=== PATIENT | female | born 1980 | race Caucasian/White ===

== ENCOUNTER 2017-07-26 08:20 | Emergency (ER) | payer MEDICAID, SELFPAY ==
[2017-07-26 08:21] VITALS: BP 138/83; PULSE 86; RESP 14; TEMP 36.7; O2SAT 98; BMI 22.9
--- NOTE | 2017-07-26 08:35 | EKG12_ITS ---
Test Reason : CHEST PAIN Blood Pressure : / mmHG Vent. Rate : 087 BPM Atrial Rate : 087 BPM P-R Int : 130 ms QRS Dur : 076 ms QT Int : 342 ms P-R-T Axes : 062 066 050 degrees QTc Int : 411 ms Normal sinus rhythm Normal ECG Confirmed by ROLANDO PELLETIER, SHAAN ([id number]), editorial specialist GUIDO KAN ([id number]) on 07/28/2017 12:55:05 PM Referred By: Confirmed By:SHAAN MARSHALL MD
--- NOTE | 2017-07-26 08:35 | RAD_ITS ---
STUDY: X-RAY CHEST REASON FOR EXAM: Female, 37 years old. Chest pain since last evening. Patient has headache today. TECHNIQUE: PA and lateral views of the chest. COMPARISON: None. FINDINGS: The lungs are clear and expanded. There is no demonstrated pleural abnormality. Normal size heart. Normal mediastinum and issa. There is prominence of the pulmonary hilar arteries without peripheral pulmonary vascular congestion. There is atherosclerotic tortuosity of the aortic arch and descending thoracic aorta. Normal visualized thoracic spine. Normal visualized ribs, clavicles, and shoulders. There is no demonstrated abnormality of the visualized soft tissue structures of the upper abdomen. RAD/Chest PA and Lateral IMPRESSION: No radiographic evidence of acute cardiopulmonary disease. Electronically Signed: Lisa Oh MD at 9:12 EST , Service support ,
[2017-07-26 08:56] LABS: Basophil# 0.05 X10^3/uL; Basophil% 0.8 % (0-1); Eosinophil# 0.08 X10^3/uL; Eosinophils% 1.3 % (0-5); Hematocrit 39.5 % (37-47); Mean Corp Hgb Conc 35.4 g/gl (32-36); Mean Corpuscular Hgb 34.5 pg (27.0-32.0); Mean Corpuscular Volume 97.3 fL (81-99); Monocyte# 0.47 X10^3/uL; Monocyte% 7.5 % (0-10); Neutrophil # 3.98 X10^3/uL (2.7-7.7); Neutrophil % 63.2 % (47-70); Platelet Count 263 K/mm3 (150-450); RBC Distribution Width CV 11.7 % (11.6-14.6); RBC Distribution Width SD 40.5 fl (35.1-43.9); Red Blood Count 4.06 M/mm3 (4.2-5.4); White Blood Count 6.3 K/mm3 (4.4-11.0)
[2017-07-26 08:57] LABS: POSITIVE COUNT NO; POSITIVE DIFFERENTIAL NO; POSITIVE MORPHOLOGY NO
[2017-07-26 09:08] LABS: D-Dimer Quantitative (DVT/PE) 0.27 FEU/ug/m (0.27-0.49)
[2017-07-26 09:11] LABS: Anion Gap 8 (5-15); BUN 12 mg/dL (7-18); BUN/Creat Ratio 15.4 RATIO (10-20); Chloride 108 mmol/L (98-107); Creatinine, Serum 0.78 mg/dL (0.55-1.02); EST Glomerular Filtration Rate 87 mL/min (>60); Est Glom Filt Rate - Afr Amer 106 mL/min (>60); Estimated Creatinine Clearance 104.71 ml/min; Glucose 97 mg/dL (74-106); Potassium 4.3 mmol/L (3.5-5.1); Sodium Level 140 mmol/L (136-145)
--- NOTE | 2017-07-26 09:17 | ED.VISSUMM ---
- ER Visit Summary Date of Service: 07/26/17 Chief Complaint: Chest pain History of Present Illness: The patient is a 37 F who presents with chest pain. Initially began about 4 days ago but has been constant since last night. She describes it as a sharp pain. It is worse with palpation coughing or deep breathing. She states she felt lightheaded and short of breath. She has had some recent congestion but denies fevers nausea vomiting diarrhea. She states that she only has a mild occasional nonproductive cough. No recent travel surgery mobilization history of DVT or pulmonary embolism or history of cancer. No history of diabetes hypertension or hyperlipidemia. He cannot think of anything where she may have injured or strained her chest wall. Physical Examination: Afebrile vitals are unremarkable Moist mucous membranes Heart regular rate and rhythm Lungs are clear Patient does have reproducible right anterior upper chest wall tenderness no rash no crepitus Equal breath sounds bilaterally Extremities nontender without edema Alert Test Results: EKG shows sinus rhythm at a rate of 87 with no acute ischemic changes. Two-view chest x-ray shows no acute process. CBC BMP troponin and d-dimer all normal. Emergency Department Course and Treatment: Since workup is unremarkable. Her pain is sharp and reproducible. I do believe this is most likely musculoskeletal in nature. She was advised on supportive care. She understands to return for new or worsening symptoms and was instructed on specific signs and symptoms to monitor for. She was discharged home. Treatment Plan: [] Disposition: Discharge Impression: Chest wall pain This note was generated with [employer] dictation software. It may contain incorrect words, spelling, and punctuation that were not noted in review of the chart prior to signing ED Disposition - Plan for ED Patient: Chief Complaint: Chest Pain Referrals: Eugenio Urban DO [Primary Care Provider] -
--- NOTE | 2017-07-26 09:19 | ED.DEP ---
ED Disposition - Plan for ED Patient: Chief Complaint: Chest Pain Instructions: ED Strain Chest Wall, ED Chest Pain NonCardiac Referrals: Eugenio Urban DO [Primary Care Provider] -
[2017-07-26 10:02] VITALS: BP 113/98; PULSE 89; RESP 18
== END 2017-07-26 10:03 | disposition home or self-care (01) ==
PROVIDERS: Emergency Provider Emergency Medicine; Family Provider Student in an Organized Health Care Education/Training Program; PCP Student in an Organized Health Care Education/Training Program
DX: R07.89 Other chest pain (principal); Z72.0 Tobacco use
CPT/HCPCS: 71046; 80048; 84484; 85025; 85379; 93005; 99284

== ENCOUNTER 2019-01-17 08:42 | Emergency (ER) | payer MEDICAID, SELFPAY ==
[2019-01-17 08:44] VITALS: BP 132/99; PULSE 102; RESP 17; TEMP 36.6; O2SAT 100; BMI 28.7
--- NOTE | 2019-01-17 08:59 | VDLE_ITS ---
Reason For Study: Swelling Procedure LEFT Exam performed portable in ED. GSV is normal. A preliminary report was called and/or faxed CFV is compressible, spontaneous, phasic, to Alessandro. competent, and demonstrates normal augmentation. FV is compressible, spontaneous, phasic, competent and demonstrates normal augmentation. POP V is compressible, spontaneous, phasic, competent and demonstrates normal augmentation. T/P Trunk is compressible. PTV is compressible. LT PerV is compressible. Nonvascularized structure noted in the proximal popliteal fossa muscle measuring 4.17 x 1.85 x 2.16 cm. Interpretation Summary There is no evidence of left lower extremity deep vein thrombosis. Left great saphenous vein appears patent and compressible segmentally. Left popliteal space 4.17 x 1.85 x 2.16 Perdomo's cyst Ordering Physician: Tyree Francois Referring Physician: Eugenio Braxton Performed By: Theresa Walters RVT
--- NOTE | 2019-01-17 10:10 | ED.VISSUMM ---
- ER Visit Summary Date of Service: 01/17/19 Chief Complaint: Left leg pain and swelling History of Present Illness: The patient is a 38 F who presents emergency department with left leg pain and swelling. She states that over the weekend she went camping/fishing in [place]. [place] than [place] drive from here. She states that while there she took a fishhook to the right arm removed without incident. She returned home yesterday and woke this morning with pain in the left leg. She describes it is mostly medial distal thigh extending posteriorly down into the left leg. She notes some mild swelling. Her is concerned he may be a tick on the calf. There is no erythema in the area. No history of DVT PE. She had a full hysterectomy in September 29, 2018. Notes painful ambulation today. Physical Examination: Afebrile vital signs stable Gen: Well-nourished well-developed Head: Normocephalic atraumatic Eyes: Perrl EOMI ENT: TMs clear no rhinorrhea moist mucous membranes Neck: Supple no lymphadenopathy no JVD nontender CVS: Regular rate rhythm no murmurs normal S1-S2 Respiratory: No distress clear to auscultation bilaterally chest nontender Abdomen: Soft nontender nondistended normal bowel sounds no masses Back: Nontender Extremity: There is some mild swelling of the left leg. On the medial left calf there is a dark black spot that could be A. tach. There is no surrounding erythema or rash. There is a fullness in the posterior popliteal fossa. Mostly felt on the medial aspect. There are no cords. Neurovascular intact distal Skin: Normal color no rash Neuro: alert orientated ?3 CN II-XII intact normal strength sensation reflexes gait cerebellar Psych: Normal affect normal mood Test Results: Venous Doppler demonstrated no DVT. There is a 4 x 2 cm nonvascularized structure in the proximal popliteal fossa/musculature. Emergency Department Course and Treatment: 1% lidocaine was instilled underneath the area that was concern for a tick. 22-gauge needle was used to lift the area off. It does appear that this was a tick. Patient was advised to monitor for rash. Advised to monitor for signs and symptoms of tickborne illnesses. Follow-up will be with orthopedics if not improving Impression: 1. Left leg pain 2. Perdomo's cyst left 3. Tick removal by physician This note was generated with Dragon dictation software. It may contain incorrect words, spelling, and punctuation that were not noted in review of the chart prior to signing ED Disposition - Plan for ED Patient: Disposition: Home or Assisted Living Instructions: Perdomo's Cyst, TICK BITE, No Abx Tx Prescriptions: Oxycodone HCl/Acetaminophen [Percocet 5/325] 1 tab PO Q6H PRN PRN 3 Days #12 tab PRN Reason: Pain Prescription Printed Referrals: Julius Oh MD [STAFF PHYSICIAN] - 1 Week if not improving
== END 2019-01-17 10:43 | disposition home or self-care (01) ==
PROVIDERS: Emergency Provider Emergency Medicine; Family Provider Student in an Organized Health Care Education/Training Program; PCP Student in an Organized Health Care Education/Training Program
DX: M71.22 Synovial cyst of popliteal space [Baker], left knee (principal); S80.862A Insect bite (nonvenomous), left lower leg, initial encounter; W57.XXXA Bitten or stung by nonvenomous insect and other nonvenomous arthropods, initial encounter; Y93.89 Activity, other specified; Y99.8 Other external cause status; M79.605 Pain in left leg; F98.8 Other specified behavioral and emotional disorders with onset usually occurring in childhood and adolescence
CPT/HCPCS: 93971; 99282

== ENCOUNTER → 2020-03-01 | Outpatient (CLI) | payer MEDICAID, SELFPAY | END | disposition home or self-care (01) | LOC: LABSPEC 13:40 | PROVIDERS: Referring Provider Family Medicine; Visit Provider Family Medicine | DX: Z03.818 Encounter for observation for suspected exposure to other biological agents ruled out (principal) | CPT/HCPCS: 87635; U0003 ==

== ENCOUNTER → 2020-03-15 | Outpatient (CLI) | payer MEDICAID, SELFPAY | END | disposition home or self-care (01) | LOC: LABSPEC 11:01 | PROVIDERS: Referring Provider Family Medicine; Visit Provider Family Medicine | DX: Z11.59 Encounter for screening for other viral diseases (principal) | CPT/HCPCS: 87635; U0003 ==

== ENCOUNTER → 2020-03-29 | Outpatient (CLI) | payer MEDICAID, SELFPAY | END | disposition home or self-care (01) | LOC: LABSPEC 12:24 | PROVIDERS: Referring Provider Family Medicine; Visit Provider Family Medicine | DX: Z03.818 Encounter for observation for suspected exposure to other biological agents ruled out (principal) | CPT/HCPCS: 87635; U0003 ==

== ENCOUNTER → 2020-04-12 | Outpatient (CLI) | payer MEDICAID, SELFPAY | END | disposition home or self-care (01) | LOC: LABSPEC 10:55 | PROVIDERS: Referring Provider Family Medicine; Visit Provider Family Medicine | DX: Z03.818 Encounter for observation for suspected exposure to other biological agents ruled out (principal) | CPT/HCPCS: 87635; U0003 ==

== ENCOUNTER → 2020-04-26 | Outpatient (CLI) | payer MEDICAID, SELFPAY | END | disposition home or self-care (01) | LOC: LABSPEC 13:23 | PROVIDERS: Referring Provider Family Medicine; Visit Provider Family Medicine | DX: Z03.818 Encounter for observation for suspected exposure to other biological agents ruled out (principal) | CPT/HCPCS: 87635; U0003 ==

== ENCOUNTER → 2022-12-17 | Outpatient (CLI) | payer MEDICAID, SELFPAY ==
[2022-12-17 15:38] LABS: Absolute Lymphocyte Count 1.86 X10^3/uL (0.83-4.51); Absolute Neutrophil Count 3.7 X10^3/uL (2.0-7.7); Basophil# 0.05 X10^3/uL; Basophil% 0.8 % (0-1); Eosinophil# 0.13 X10^3/uL; Eosinophils% 2.1 % (0-5); Hematocrit 39.6 % (37-47); Hemoglobin 13.7 g/dL (12.0-15.0); Lymphocyte # 1.86 X10^3/ul (0.83-4.51); Lymphocyte % 29.6 % (19-41); Mean Corp Hgb Conc 34.6 g/dL (32-36); Mean Corpuscular Hgb 33.7 pg (27.0-32.0); Mean Corpuscular Volume 97.3 fL (81-99); Monocyte# 0.49 X10^3/uL; Monocyte% 7.8 % (0-10); NRBC Flagged by Analyzer 0 % (0-5); Neutrophil # 3.73 X10^3/uL (2.7-7.7); Neutrophil % 59.4 % (47-70); Platelet Count 299 K/mm3 (150-450); RBC Distribution Width CV 11.9 % (11.6-14.6); RBC Distribution Width SD 42.6 fl (35.1-43.9); Red Blood Count 4.07 M/mm3 (4.2-5.4); White Blood Count 6.3 K/mm3 (4.4-11.0)
[2022-12-17 15:48] LABS: Erythrocyte Sedimentation Rate 8 mm/hr (0-30)
[2022-12-17 16:20] LABS: Vitamin B12 950 pg/mL (211-911)
[2022-12-17 16:50] LABS: AST(SGOT) 22 U/L (15-37); Alanine Aminotransfer ALT/SGPT 41 U/L (13-56); Albumin, Serum 3.7 g/dL (3.2-5.0); Alkaline Phosphatase 99 U/L (45-117); Amylase 57 U/L (25-115); Anion Gap 3 (5-15); BUN 16 mg/dL (7-18); BUN/Creat Ratio 16.3 RATIO (10-20); CRP < 2.90 mg/L (0.0-3.0); Calcium,Total 8.9 mg/dL (8.5-10.1); Chloride 109 mmol/L (98-107); Creatinine, Serum 0.98 mg/dL (0.55-1.02); EST Glomerular Filtration Rate 65 mL/min (>60); Est Glom Filt Rate - Afr Amer 79 mL/min (>60); Globulin 3.8 g/dL (2.2-4.2); Glucose 97 mg/dL (74-106); LDH 177 U/L (84-246); Lipase 54 U/L (13-75); Potassium 3.9 mmol/L (3.5-5.1); Protein, Total 7.5 g/dL (6.4-8.2); Sodium Level 137 mmol/L (136-145)
[2022-12-21 00:06] LABS: Anti-Centromere B Ab <0.2 AI (0.0-0.9); Anti-Chromatin <0.2 AI (0.0-0.9); Anti-Jo <0.2 AI (0.0-0.9); Anti-Scleroderma-70 AB <0.2 AI (0.0-0.9); Anti-dsDNA Ab 1 IU/mL (0-9); Beef <0.10 kU/L (Class 0); Chocolate <0.10 kU/L (Class 0); Clam <0.10 kU/L (Class 0); Codfish <0.10 kU/L (Class 0); Corn <0.10 kU/L (Class 0); Egg, White 0.14 kU/L (Class 0/I); Egg, Whole 0.15 kU/L (Class 0/I); Milk (Cow) <0.10 kU/L (Class 0); Peanut <0.10 kU/L (Class 0); Pork <0.10 kU/L (Class 0); RNP Ab <0.2 AI (0.0-0.9); SCALLOP <0.10 kU/L (Class 0); SESAME SEED <0.10 kU/L (Class 0); SJOGREN'S Anti-SS-A test < 0.2 AI (0.0-0.9); SJOGREN'S Anti-SS-B test < 0.2 AI (0.0-0.9); Shrimp <0.10 kU/L (Class 0); Smith Ab <0.2 AI (0.0-0.9); Soybean <0.10 kU/L (Class 0); Walnut, (Food) <0.10 kU/L (Class 0); Wheat 0.11 kU/L (Class 0/I)
[2022-12-21 01:06] LABS: Albumin 3.9 g/dL (2.9-4.4); Alpha-1-Globulins 0.2 g/dL (0.0-0.4); Alpha-2-Globulins 0.8 g/dL (0.4-1.0); Cytoplasmic Ab (C-ANCA) 1:20 titer (Neg:<1:20); Endomysial Antibody IgA Negative (Negative); Gamma Globulin 1.1 g/dL (0.4-1.8); Immunoglobulin A 222 mg/dL (87-352); Immunoglobulin E 101 IU/mL (6-495); Immunoglobulin G 965 mg/dL (586-1602); Immunoglobulin M 108 mg/dL (26-217); PROEL- TOTAL PROTEIN 7.1 g/dL (6.0-8.5); Perinuclear Ab (P-ANCA) <1:20 titer (Neg:<1:20); t-Transglutaminase IgA <2 U/mL (0-3)
== END | disposition home or self-care (01) ==
PROVIDERS: PCP Student in an Organized Health Care Education/Training Program; Referring Provider Internal Medicine Gastroenterology; Visit Provider Internal Medicine Gastroenterology
DX: R19.5 Other fecal abnormalities (principal)
CPT/HCPCS: 36415; 80053; 82150; 82533; 82607; 82746; 82784; 82785; 83516; 83615; 83690; 84165; 85025; 85652; 86003; 86005; 86140; 86225; 86235; 86255; 86256; 86334

== ENCOUNTER → 2022-12-18 | Outpatient (CLI) | payer MEDICAID, SELFPAY ==
[2022-12-21 01:06] LABS: Calprotectin, Stool 8 ug/g (0-120)
[2022-12-23 14:09] LABS: Pancreatic Elastase, Fecal 270 (>200)
== END | disposition home or self-care (01) ==
LOC: LABSPEC 09:40
PROVIDERS: PCP Student in an Organized Health Care Education/Training Program; Referring Provider Internal Medicine Gastroenterology; Visit Provider Internal Medicine Gastroenterology
DX: R19.5 Other fecal abnormalities (principal); K58.9 Irritable bowel syndrome, unspecified
CPT/HCPCS: 82653; 83630; 83993; 87177; 87209; 87329; 87493; 87506

== ENCOUNTER → 2023-01-05 | Outpatient (CLI) | payer MEDICAID, SELFPAY | END | disposition home or self-care (01) | PROVIDERS: PCP Student in an Organized Health Care Education/Training Program; Referring Provider Internal Medicine Gastroenterology; Visit Provider Internal Medicine Gastroenterology | DX: R19.5 Other fecal abnormalities (principal) ==

== ENCOUNTER 2023-07-27 11:00 | Day surgery (SDC) | payer OTHER, SELFPAY ==
[2023-07-27] VITALS (7 sets, daily range): BP systolic 115–128; BP diastolic 79–95; PULSE 47–70; RESP 16–18; TEMP 35.6–36.4; O2SAT 100; BMI 29.7
[2023-07-27] MEDS: Lactated Ringers 1,000 ML 15 ML IV (11:17)
--- NOTE | 2023-07-27 11:34 | PCM.HP.BLA ---
History and Physical Date of Admission: 07/27/23 42 F who presents to the office today for PCP OV 3.15.23 with loose/black stools and mild dysphagia. PPI, cholestyramine started. ? Biochemical 05.03.22 CBC, CMP, LFT, Lipids without pertinent abnormality. ? Fecal Occult WNL *BGI established 12.17.22 gluten free diet recommended by PCP has been helpful. She has been having postprandial loose stools, bloating and burning starting in the morning; will have abdominal pain if she pushes the amount of food intake. Onset approximately a year prior. Diet consists of yogurt, salads, fruits and vegetables which she eats every 12 hours. ? Biochemical CBC, ESR, CMP, CRP, LDH, amylase, lipase, folate, cortisol, GAME, JOSE, celiac without pertinent abnormality ? B12 H950, cANCA H1:20??? RAST Class 1: wheat, egg white, egg whole ? Stool calprotectin, elastase, C.difficile, EP, lactoferrin WNL Contact 12.29.22 with biochemical results, can start Xifaxan to address possible SIBO and avoidance of food sensitivities. OV 12..23 continues to have urgent loose stools with urgency incontinence with mucous and bloating occurring several times a week and last the entire day; since cessation of food sensitivities symptoms are no longer postprandial, has also gone milk/sour cream/ice cream and this avoidance has improved the food trigger. Currently taking Prozac; but feels she is easily stressed and anxious. ROS Const Constitutional: No anorexia, fatigue, fever(s), weight change or sleep problems Eyes Eyes: No change in vision ENT ENT: No abnormal hearing, difficulty swallowing, mouth lesions, tongue swelling or throat swelling Resp Respiratory: No cough or shortness of breath Cardio Cardiology: No chest pain at rest, chest pain with exertion, shortness of breath or dyspnea on exertion Gastro GI: No difficulty swallowing Genitourinary-Female: No difficulty urinating or burning urination Musc Musculoskeletal: No joint pain, joint swelling, muscle weakness or decreased muscle mass Skin Skin: No hair loss in leg, yellowing of the eye, itchy eyes, rash, skin ulcer or skin swelling Neuro Neurology: No abnormal hearing, abnormal movements, confusion, unsteady gait/balance or memory loss Psych Psychiatric: No anxiety, No confusion and No memory loss Endo Endocrine: No fatigue or weight change Aller/Imm Allergy/Immunologic: No itchy eyes, throat swelling or tongue swelling Doe/Lymp Hematologic/Lymphatic: No easy bleeding, easy bruising or enlarged lymph nodes Exam Const General: cooperative and comfortable Nutritional Appearance: average body habitus and well nourished [facility] Head: normal to inspection Ears: hearing grossly normal bilaterally Nose: external nose normal Face and sinus: normal facial exam Mouth: oral mucosae normal Throat: posterior oropharynx normal Eyes General: appearance normal, both eyes and all related structures Neck Neck: normal visual inspection Chest Chest palpation & inspection: normal inspection of the chest and normal palpation of entire chest wall Resp Effort & Inspection: normal respiratory effort Auscultation: Bilateral: Clear to Auscultation Cardio Palpation: normal PMI Rate: regular rate Rhythm: regular rhythm GI Inspection: normal to inspection Auscultation: normal bowel sounds Percussion: normal to percussion Palpation: no hepatosplenomegaly Skin General: no rashes or lesions noted Neuro General: patient alert Extrem General: normal to inspection Psych Affect: normal affect Quality Reporting Tobacco Screening ([facility]) Smoking Status: Current every day smoker Assessment and Plan Assessment and Plan (1) Loose stools: Status: Chronic Plan: The differential diagnosis for her diarrhea is a an accelerated gastrocolic reflex, bile acid diarrhea, exocrine pancreatic insufficiency, Endocrinopathy, infectious enterocolitis, inflammatory bowel disease, infectious colitis. She will undergo biochemical testing in a gastric emptying study to see if she truly has accelerated gastrocolic reflex. Once her stools are back we will discuss recommendations for her. We will start her on colestipol and dicyclomine. I suspect that she has bile acid diarrhea. I suspect that she also has elements of IBS with diarrhea. After she undergoes colonoscopy we will have a better understanding regarding her anatomy. (2) Encounter for screening for malignant neoplasm of colon: Status: Chronic Plan: Starting she will undergo colonoscopy as a screening. She was explained alternatives, risk, benefits including not withstanding bleeding, infection, sepsis, perforation, need for emergent surgery . She will be an ASA 2. Orders: Orders Colonoscopy Today Z12.11 - Encounter for screening for malignant neoplasm of colon Medications: New colestipol 1 g PO BID 60 tabs 0RF dicyclomine 10 mg PO BID 60 caps 0RF I have examined the patient and the H&P has been reviewed. There are no clinical changes since date of exam.
--- OUTSIDE RECORDS SUMMARY | 2023-07-27 11:53 | XMS RPT_ITS | CCD ---
Author Name Unknown Address [address] [place] [address] Organization [facility] Care Team Providers Care Photogrammetric Surveyor Name Role Phone EUGENIO BAR Primary Care Unavailable CRISTAL PASTRANA Attending Unavailable Eugenio Bar Primary Care Provider RM GARCIA DO Primary Care Physician [phone] Eugenio Bar DO Primary Care Provider [phone] Eugenio Bar DO Primary Care Provider HALKO DO, RM Primary Care Unavailable HALKO DO, RM Attending Unavailable HALKO DO, RM Primary Care Unavailable MAST SAKSHI BARBER Attending Unavailabl e HALKO DO, RM Attending Unavailable HALKO DO, RM Primary Care Unavailable HALKO DO, RM Attending Unavailable HALKO DO, RM Primary Care Unavailable HALKO DO, RM Attending Unavailable HALKO DO, RM Primary Care Unavailable HALKO DO, RM Attending Unavailable HALKO DO, RM Primary Care Unavailable HALKO DO, RM Attending Unavailable HALKO DO, RM Primary Care Unavailable HALKO DO, RM Primary Care Unavailable HALKO DO, RM Attending Unavailable HALKO DO, RM Primary Care Unavailable HALKO DO, RM Attending Unavailable HALKO DO, RM Primary Care Unavailable BYRON CISNEROS DO Attending Unavailable HALKO DO, RM Primary Care Unavailable BYRON CISNEROS DO Attending Unavailable DR RAJANI HERNANDEZ MD Attending Unavailabl e HALKO DO, RM Primary Care Unavailable Allergies Allergy Classification Reported Allergen(s) Allergy Type Date of Onset Reaction(s) Facility (2 sources) Contrast media; Translations: [RED DYE] Propensity to adverse reactions to drug (disorder) 9 [facility] Repository (12 sources) predniSONE; Translations: [Unknown] Drug Allergy 6 Hives, Shortness Of Breath, Mental Status Change [facility] Repository Medications Current Medications Medication Drug Class(es) Dates Sig (Normalized) Sig (Original) amoxicillin 875 mg / clavulanate 125 mg oral tablet (1 source) Penicillin-class Antibacterial Start: 01-15-2019 End: 01-20-2019 take 1 tablet by mouth twice daily amoxicillin-clav ulanate (AUGMENTIN) 875-125 mg per tablet Take 1 (one) tablet by mouth 2 (two) times a day for 5 days . 10 tablet 0 01/15/2019 01/20/2019 Active busPIRone hydrochloride 5 mg oral tablet (8 sources) Start: 08-02-2021 End: 11-24-2022 busPIRone 5 mg oral tablet Dose : 5 mg = 1 tab(s), Oral, BID, # 180 tab(s), 1 Refill(s), Pharmacy: [facility] #[id number], 177.8, cm, 05/28/22 14:52:00 EST, Height, kg, 05/28/22 14:52:00 EST, Dosing Weight Start Date: 05/28/22 Stop Date: 11/24/22 Status: Ordered Completed/Discontinued Medications Medication Drug Class(es) Dates Sig (Normalized) Sig (Original) Acetaminophen (2 sources) acetaminophen (T YLENOL ORAL) Take 1 tablet by mouth as needed (takes due to allergy). 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 Allergic reactions (1 source) Gluten sensitivity 12-31-2022 Chronic Allergic reactions (1 source) Allergy to egg protein 12-31-2022 Episodic Anxiety disorders (16 sources) Mixed anxiety and depressive disorder; Translations: [Panic attack] 04-12-2021 Chronic Attention-deficit, conduct, and disruptive behavior disorders (10 sources) Attention deficit hyperactivity disorder; Translations: [Attention-deficit hyperactivity disorder, unspecified type] Onset: 05-16-2016 08-01-2016 Chronic Deficiency and other anemia (8 sources) Anemia 04-12-2021 Episodic Disorders of lipid metabolism (8 sources) Hyperlipidemia 04-29-2021 Chronic Headache; including migraine (2 sources) Migraine; Translations: [Migraine, unspecified, not intractable, without status migrainosus] Onset: 05-16-2016 05-16-2016 Chronic Headache; including migraine (8 sources) Headache 04-12-2021 Episodic Inflammation; infection of eye (except that caused by tuberculosis or sexually transmitteddisease) (3 sources) Blepharitis of right eyelid 06-09-2022 Episodic Malaise and fatigue (10 sources) Fatigue; Translations: [Other fatigue] Onset: 04-29-2023 04-12-2021 Episodic Mood disorders (5 sources) Severe major depression; Translations: [Major depression in remission] 04-30-2022 Chronic Other bone disease and musculoskeletal deformities (7 sources) Somatic dysfunction of lumbar region 08-02-2021 Episodic Other bone disease and musculoskeletal deformities (7 sources) Somatic dysfunction of sacral region 08-02-2021 Episodic Other bone disease and musculoskeletal deformities (6 sources) Somatic dysfunction of pelvic region 02-26-2022 Episodic Other circulatory disease (5 sources) Easy bruising 04-30-2022 Episodic Other connective tissue disease (7 sources) Iliotibial band friction syndrome 08-02-2021 Episodic Other connective tissue disease (7 sources) Triggering of digit 12-11-2021 Episodic Other connective tissue disease (6 sources) Trochanteric bursitis 02-26-2022 Episodic Other gastrointestinal disorders (3 sources) Abdominal bloating 09-30-2022 Episodic Other gastrointestinal disorders (3 sources) Black feces 08-27-2022 Episodic Other gastrointestinal disorders (3 sources) Diarrhea 09-30-2022 Episodic Other gastrointestinal disorders (3 sources) Esophageal dysphagia 08-27-2022 Episodic Other injuries and conditions due to external causes (8 sources) Nerve injury 09-20-2015 Episodic Other injuries and conditions due to external causes (4 sources) At low risk for fall 01-29-2022 Episodic Other nervous system disorders (2 sources) Bilateral carpal tunnel syndrome; Translations: [Carpal tunnel syndrome, bilateral upper limbs] Onset: 07-06-2013 07-06-2013 Chronic Other nervous system disorders (2 sources) Ulnar neuropathy of left arm; Translations: [Lesion of ulnar nerve, left upper limb] Onset: 06-19-2016 06-19-2016 Chronic Other nervous system disorders (2 sources) Carpal tunnel syndrome of left wrist; Translations: [Carpal tunnel syndrome, left upper limb] Onset: 06-19-2016 06-19-2016 Chronic Other nervous system disorders (7 sources) Carpal tunnel syndrome 10-30-2021 Chronic Other non-traumatic joint disorders (7 sources) Hip pain 08-02-2021 Episodic Other nutritional; endocrine; and metabolic disorders (2 sources) Obese class I; Translations: [Obesity, unspecified] Onset: 09-29-2018 09-29-2018 Chronic Other nutritional; endocrine; and metabolic disorders (7 sources) Body mass index 30+ - obesity 01-29-2022 Chronic Other nutritional; endocrine; and metabolic disorders (7 sources) Obesity 01-29-2022 Chronic Other screening for suspected conditions (not mental disorders or infectious disease) (17 sources) Measurement finding above reference range; Translations: [Patient encounter status] 04-29-2021 Episodic Residual codes; unclassified (8 sources) Tobacco user 04-12-2021 Episodic Residual codes; unclassified (7 sources) History of total hysterectomy with bilateral salpingo-oophorectom y 10-30-2021 Episodic Residual codes; unclassified (9 sources) Insomnia 05-24-2021 Episodic Residual codes; unclassified (3 sources) FH: Crohn's disease 09-30-2022 Episodic Residual codes; unclassified (3 sources) Screening due 09-10-2022 Episodic Residual codes; unclassified (1 source) Immunization due 12-31-2022 Episodic Spondylosis; intervertebral disc disorders; other back problems (4 sources) Degeneration of cervical intervertebral disc; Translations: [Other cervical disc degeneration, unspecified cervical region] Onset: 07-06-2013 07-06-2013 Chronic Thyroid disorders (17 sources) Goiter; Translations: [Thyroid nodule] Onset: 04-29-2023 04-12-2021 Chronic Unclassified (20 sources) Patient encounter status 04-12-2021 Past or Other Problems Problem Classification Problem Date Documented Da te Episodic/Chronic Gastrointestinal hemorrhage (2 sources) Melena; Translations: [Melena] Onset: 08-28-2022 Episodic Open wounds of extremities (1 source) Fishing hook in forearm; Translations: [Fish hook in forearm] Episodic Other connective tissue disease (2 sources) Pain in limb; Translations: [Pain in unspecified limb] Onset: 05-19-2013 05-19-2013 Episodic Other connective tissue disease (2 sources) Impingement syndrome of right shoulder region; Translations: [Impingement syndrome of right shoulder] Onset: 08-01-2013 08-01-2013 Episodic Residual codes; unclassified (2 sources) Tobacco use and exposure - finding; Translations: [Tobacco use] Onset: 05-16-2016 05-16-2016 Episodic Spondylosis; intervertebral disc disorders; other back problems (4 sources) Neck pain; Translations: [Cervicalgia] Onset: 07-06-2013 07-06-2013 Episodic Results Test Name Value Interpretation Reference Range Facil ity Vital Signs Date Time Vital Sign Value Performing Clinician Facility 10-05-2022 04:38-0400 Body temperature 98.24 [degF] DR RAJANI HERNANDEZ MD [facility] 10-05-2022 04:38-0400 Diastolic Blood Pressure Non-Invasive [address] RAJANI HERNANDEZ MD [facility] 10-05-2022 04:38-0400 Heart rate 91 /min DR RAJANI HERNANDEZ MD [facility] 10-05-2022 04:38-0400 Respiratory rate 16 /min DR RAJANI HERNANDEZ MD [facility] 10-05-2022 04:38-0400 Systolic Blood Pressure Non-Invasive [address] RAJANI HERNANDEZ MD [facility] 01-15-2019 20:34-0400 BMI (Body Mass Index) 25.54 kg/m2 [facility] 01-15-2019 20:34-0400 Body Temperature 97.81 [degF] [facility] 01-15-2019 20:34-0400 Body weight 80.74 kg [facility] 01-15-2019 20:34-0400 BP Diastolic 108 mm[Hg] [facility] 01-15-2019 20:34-0400 BP Systolic 150 mm[Hg] [facility] 01-15-2019 20:34-0400 Height 177.8 cm [facility] 01-15-2019 20:34-0400 Pulse (Heart Rate) 112 /min [facility] 01-15-2019 20:34-0400 Pulse Oximetry 100 % [facility] 01-15-2019 20:34-0400 Respiratory Rate 18 /min [facility] Encounters Encounter Date Encounter Type Care Provider Facility Start: 06-10-2023 ambulatory RM HALKO DO Facili ty:B Start: 06-04-2023 ambulatory RM HALKO DO Facili ty:B Start: 05-12-2023 End: 05-13-2023 ambulatory RM HALKO DO Facility:A Start: 04-30-2023 End: 05-01-2023 ambulatory RM HALKO DO Facility:B Start: 04-30-2023 ambulatory RM HALKO DO Facili ty:B Start: 04-29-2023 End: 05-04-2023 ambulatory RM HALKO DO Facility:B Start: 02-18-2023 End: 02-19-2023 ambulatory RM HALKO DO Facility:B Start: 02-18-2023 End: 02-18-2023 Patient encounter procedure RM HALKO DO [facility] Start: 10-08-2022 End: 10-09-2022 ambulatory RM HALKO DO Facility:B Start: 10-08-2022 End: 10-08-2022 Patient encounter procedure 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 [facility] Start: 10-05-2022 End: 10-05-2022 Emergency department patient visit DR RAJANI HERNANDEZ MD Facility:B Start: 10-05-2022 End: 10-05-2022 Emergency department patient visit DR RAJANI HERNANDEZ MD [facility] Start: 09-11-2022 ambulatory RM HALKO DO Facili ty:B Start: 09-10-2022 ambulatory Eugenio Monreal lashonda DO Work Phone: Internal Medicine [facility] Start: 08-28-2022 End: 09-02-2022 ambulatory RM HALKO DO Facility:B Start: 06-15-2022 End: 06-20-2022 ambulatory RM GARCIA DO Facility:B Start: 06-04-2022 End: 06-04-2022 Patient encounter procedure RM GARCIA DO [facility] Start: 05-03-2022 End: 05-03-2022 Patient encounter procedure RM GARCIA DO [facility] Start: 03-12-2022 End: 03-12-2022 Patient encounter procedure RM GARCIA DO [facility] Start: 02-12-2022 End: 02-12-2022 Patient encounter procedure RM GARCIA DO [facility] Start: 09-25-2021 ambulatory Eugenio gallego DO Work Phone: Internal Medicine [facility] Start: 05-08-2021 End: 05-08-2021 Patient encounter procedure RM GARCIA DO [facility] Start: 01-15-2019 End: 01-16-2019 Emergency department patient visit EUGENIO Therese CAMPABAR [facility] Start: 01-15-2019 End: 01-15-2019 Emergency department patient visit Cristal Hope Victoriano Work Phone: [facility] Emergency Department Procedures Date Procedure Procedure Detail Performing Clinician Start: 03-06-2020 Adult depression scr eening assessment Eugenio Bar DO Work Phone: Start: 08-19-2018 Mammography Eugenio harvey DO Work Phone: Bladder excision RM HURT DO Plan of Treatment Date Care Activity Detail Author Start: 02-13-2023 Influenza vaccination INFLUENZA (Season Ended) [facility] Start: 06-15-2022 DEPRESSION ASSESSMENT DEPRESSION ASSESSMENT [facility] Start: 02-13-2022 Influenza vaccination INFLUENZA (Season Ended) [facility] Start: 03-06-2021 Adult depression screening assessment DEPRESSION SCREENING [facility] Start: 02-06-2021 COVID-19 VACCINE (3 - Booster for Pfizer series) COVID-19 VACCINE (3 - Booster for Pfizer series) [facility] Start: 11-01-2020 COVID-19 VACCINE (5 - Booster) COVID-19 VACCINE (5 - Booster) [facility] Start: 08-20-2019 Mammography MAMMOGRAM [facility] Start: 1997 ONE PNEUMOVAX PRIOR TO AGE 65 ONE PNEUMOVAX PRIOR TO AGE 65 [facility] Start: 1997 Urine microalbumin profile DTAP,TDAP,TD (1 - Tdap) [facility] Start: 1996 HEPATITIS C SCREENING HEPATITIS C SCREENING [facility] Start: 1996 HIV SCREENING HIV SCREENING [facility] Start: 1984 PNEUMOCOCCAL (1 - PCV) PNEUMOCOCCAL (1 - PCV) [facility] Start: 1978 HEPATITIS B (1 of 3 - 3-dose series) HEPATITIS B (1 of 3 - 3-dose series) [facility] End: 10-10-2023 DOUGLAS SCREENING DOUGLAS SCREENING Radiology Routine Encounter for screening mammogram for breast cancer 1 Occurrences starting 09/10/2022 until 10/10/2023 [facility] Work Phone: Immunizations Immunization Date Immunization Notes Care Provider Kenia mina 09-06-2020 COVID-19 vaccine, ag e 12+ yr (PFIZER-BIONTECH - PURPLE TOP) Eugenio Bar DO Work Phone: [facility] Work Phone: 08-09-2020 COVID-19 vaccine, ag e 12+ yr (PFIZER-BIONTECH - PURPLE TOP) Eugenio Bar DO Work Phone: [facility] Work Phone: 07-12-2020 SARS-CoV-2 mRNA (tozinameran) vaccine RM GARCIA DO [facility] Payers Date Payer Category Payer Medicaid UHC MEDICAID UHC COMMUNITY PLAN MEDICA[place] [id number] 2022-Present [phone] [address] [place] [address] Medicaid [id number] 2022 Private Health Insurance [id number] 2018 Medicaid [id number] 2018 Medicaid [facility] MEDICAID COMMUNITY PLAN xxxxxxxxx 2018-Present xxxxxxxxx [id number] 2018 Medicaid UHC MEDICAID UHC COMMUNITY PLAN MEDICAID [id number] 2018-Present [phone] [address] [place] [id number] Medicaid [id number] 1978 Unknown [id number] 1978 Unknown [id number] [id number]. 1978 Unknown [id number] [id number]. 7 1978 Unknown [id number] [id number]. 7 1978 Unknown [id number] [id number]. 1978 Unknown [id number] [id number]. 1978 Unknown [id number] [id number]. 7 1978 Unknown [id number] [id number]. 627 1978 Unknown [id number] [id number]. 627 1978 Unknown [id number] [id number]. 627 1978 Unknown [id number] [id number]. 627 1978 Unknown [id number] [id number]. 627 1978 Unknown [id number]. 627 Social History Date Type Detail Facility Start: 05-16-2016 End: 01-15-2019 Tobacco smoking status NHIS Current every day smoker [facility] Start: 01-15-2019 Alcohol Comment occasional [facility] Assigned At Not on file [facility] Start: 04-29-2021 Light tobacco smoker (finding) [facility] Smoker (finding) [facility] Sex Assigned At [facility] History of tobacco use Cigarette Smoker [facility] Start: 01-07-2021 Alcohol intake Current drinke r of alcohol (finding) [facility] Start: 11-09-2019 End: 03-06-2020 History SDOH Alcohol Frequency 3 [facility] Start: 11-09-2019 End: 03-06-2020 History SDOH Alcohol Std Drinks 1 [facility] Start: 11-09-2019 End: 01-07-2021 History SDOH Alcohol Binge 2 [facility] Start: 08-03-2008 History SDOH Alcohol Comment a few times a year [facility] Start: 11-09-2019 End: 03-06-2020 History SDOH Social Connections Phone 5 [facility] Start: 03-06-2020 History SDOH Social Connections Get Together 4 [facility] Start: 11-09-2019 Education 12 [facility] Start: 1980 Sex Assigned At Female [facility] Start: 05-16-2016 Cigarettes smoked current (pack per day) - Reported 0.5 [facility] Start: 05-16-2016 Tobacco use and exposure Smoke less tobacco non-user [facility] Functional Status Date Assessment Result Facility 10-05-2022 Functional Status Independent Aline Yehuda cuenca [facility] 10-05-2022 Functional Status Standard Safet y ID band on, Allergy Band on, Call device within reach, Bed in low position, Wheels locked, Upper/Half-Length side-rails up, personal items within reach, Visitor at bedside, Safety level maintained [facility] Mental Status Date Assessment Result Facility 10-05-2022 Mental Status Orientation Oriented x 4 [facility] 10-05-2022 Mental Status [facility] Clinical Notes 07-06-2013 to 10-08-2022 Note Date & Type Note Facility 10-08-2022 Note ORIGINAL EXAMINATION: COMPLETE ABDOMINAL ULTRASOUND10/08/2022 11:02 am COMPARISON: CT 10/05/2022 HISTORY: ORDERING SYSTEM PROVIDED HISTORY: Reason for Exam: RUQ pain FINDINGS: The visualized liver is normal in size and echogenicity. There is an area of focal fatty change adjacent to the falciform ligament also seen on CT of no clinical significance. The left lobe liver lesion seen on CT is not visualized on this study. No intrahepatic bile duct dilatation. The common duct is 7.6 mm at the darion hepatis. There is no stone in the duct to the level of the pancreatic head. There is distal tapering of the duct on CT and this is probably physiologic. The visualized pancreas is normal, small portions are obscured by bowel gas. The spleen is normal in size and echogenicity. There are a couple of small accessory splenules near the splenic hilum also seen on CT. Limited survey images of both kidneys show normal size cortical thickness and echogenicity with no pelvocaliectasis. The visualized aorta and IVC are normal in caliber. IMPRESSION: No acute findings. There is mild dilatation of the common duct at the darion hepatis. If LFTs suggest obstruction, consider MRCP. No other acute or significant abnormality. Interpreted by: Jimmy Haro MD Preliminary Report By: Jimmy Haro MD Electronically signed By Jimmy Haro MD Dictated Date: 10/08/2022 10:22:05 PM Prelim Date: 10/08/2022 10:28:06 PM Sign Date: 10/08/2022 10:28:06 PM Ordering Provider: [facility] 10-08-2022 Note ORIGINAL EXAMINATION: COMPLETE ABDOMINAL ULTRASOUND10/08/2022 11:02 am COMPARISON: CT 10/05/2022 HISTORY: ORDERING SYSTEM PROVIDED HISTORY: Reason for Exam: RUQ pain FINDINGS: The visualized liver is normal in size and echogenicity. There is an area of focal fatty change adjacent to the falciform ligament also seen on CT of no clinical significance. The left lobe liver lesion seen on CT is not visualized on this study. No intrahepatic bile duct dilatation. The common duct is 7.6 mm at the darion hepatis. There is no stone in the duct to the level of the pancreatic head. There is distal tapering of the duct on CT and this is probably physiologic. The visualized pancreas is normal, small portions are obscured by bowel gas. The spleen is normal in size and echogenicity. There are a couple of small accessory splenules near the splenic hilum also seen on CT. Limited survey images of both kidneys show normal size cortical thickness and echogenicity with no pelvocaliectasis. The visualized aorta and IVC are normal in caliber. IMPRESSION: No acute findings. There is mild dilatation of the common duct at the darion hepatis. If LFTs suggest obstruction, consider MRCP. No other acute or significant abnormality. Interpreted by: Jimmy Haro MD Preliminary Report By: Jimmy Haro MD Electronically signed By Jimmy Haro MD Dictated Date: 10/08/2022 10:22:05 PM Prelim Date: 10/08/2022 10:28:06 PM Sign Date: 10/08/2022 10:28:06 PM Ordering Provider: [facility] 10-05-2022 Hospital Discharge instructions Patient Education 10/05/2022 06:28:43 Abdominal Pain, Unknown Cause, (Female) Unknown Causes of Abdominal Pain (Female) The exact cause of your belly (abdominal) pain is not clear. This does not mean that this is something to worry about. Everyone likes to know the exact cause of the problem. But sometimes with belly pain, there is no clear-cut cause, and this could be a good thing. The good news is that your symptoms can be treated, and you will feel better. Your condition does not seem serious now. But sometimes the signs of a serious problem may take more time to appear. For this reason, it is important for you to watch for any new symptoms, problems, or worsening of your condition. Over the next few days, the abdominal pain may come and go. Or it may be constant. Other common symptoms can include nausea and vomiting. Sometimes it can be difficult to tell if you feel nauseous. You may just feel bad and not connect that feeling to nausea. Constipation, diarrhea, and a fever may go along with the pain. The pain may continue even if treated correctly over the following days. Depending on how things go, sometimes the cause can become clear and may need more or different treatment. Additional evaluations, medicines, or tests may also be needed. Home care Your healthcare provider may prescribe medicine for pain, symptoms, or an infection. Follow the healthcare provider's instructions for taking these medicines. General care Rest as much as you can until your next exam. No strenuous activities. Try to find positions that ease discomfort. A small pillow placed on the abdomen may help relieve pain. Something warm on your abdomen (such as a heating pad) may help, but be careful not to burn yourself. Diet Don t force yourself to eat, especially if having cramps, vomiting, or diarrhea. Water is important so you don't get dehydrated. Soup may also be good. Sports drinks may also help, especially if they are not too acidic. Don't drink sugary drinks as this can make things worse. Take liquids in small amounts. Don t guzzle them. Caffeine sometimes makes the pain and cramping worse. Don t take dairy products if you have vomiting or diarrhea. Don't eat large amounts at a time. Wait a few minutes between bites. Eat a diet low in fiber (called a low-residue diet). Foods allowed include refined breads, white rice, fruit and vegetable juices without pulp, tender meats. These foods will pass more easily through the intestine. Don t have whole-grain foods, whole fruits and vegetables, meats, seeds and nuts, fried or fatty foods, dairy, alcohol and spicy foods until your symptoms go away. Follow-up care Follow up with your healthcare provider, or as advised, if your pain does not begin to improve in the next 24 hours. Call 911 Call 911 if any of these occur: Trouble breathing Confusion Fainting or loss of consciousness Rapid heart rate Seizure When to seek medical advice Call your healthcare provider right away if any of these occur: Pain gets worse or moves to the right lower abdomen New or worsening vomiting or diarrhea Swelling of the abdomen Unable to pass stool for more than 3 days Fever of 100.4 F (38 C) or higher, or as directed by your healthcare provider. Blood in vomit or bowel movements (dark red or black color) Yellow color of eyes and skin (jaundice) Weakness, dizziness Chest, arm, back, neck, or jaw pain Unexpected vaginal bleeding or missed period Can't keep down liquids or water and you are getting dehydrated [id number] [employer]. [address] [place] [address]. All rights reserved. This information is not intended as a substitute for professional medical care. Always follow your healthcare professional's instructions. Follow Up Care 10/05/2022 04:27:02 With:RM GARCIA Address: [address] [place] [address] [phone] Business (1) When:2-4 days [facility] 10-05-2022 Note Discharge Instructions Thank you for allowing [facility] to assist you with your healthcare needs. The following is important discharge information regarding your hospital visit. Diagnosis from Today's Visit Abdominal pain Abdominal pain What to Do Next Instructions from Your Care Team No qualifying data available. Post Acute Orders No qualifying data available. You Need to Schedule the Following Appointments Follow Up with RM GARCIA When Within 2-4 days Where: [address] [place] [address] [phone] Business (1) Allergies predniSONE (Hives, Hives) Medications Please ask your primary doctor or pharmacist before taking any other medication not listed, including over the counter drugs, herbal medications, vitamins and or supplements as they may interact with your home medications. What How Much When Why Instructions Last Dose New cyclobenzaprine (cyclobenzaprine 10 mg oral tablet) 1 tab(s) by mouth Three (3) times a day Duration: 7 Days Printed Prescription Unchanged amphetamine-dextroamphetamine (Adderall 30 mg oral tablet) 0.5 tab(s) by mouth Two (2) times a day ADD (attention deficit disorder) Duration: 30 Days to be filled on or after Unchanged amphetamine-dextroamphetamine (Adderall 30 mg oral tablet) 0.5 tab(s) by mouth Two (2) times a day ADD (attention deficit disorder) Duration: 30 Days to be filled on or after Unchanged amphetamine-dextroamphetamine (Adderall 30 mg oral tablet) 0.5 tab(s) by mouth Two (2) times a day ADD (attention deficit disorder) Duration: 30 Days to be filled on or after Unchanged cholecalciferol (Vitamin D3 50 mcg (2000 intl units) oral capsule) 1 cap by mouth Once a day Unchanged diclofenac (diclofenac sodium 75 mg oral delayed release tablet) 1 tab(s) by mouth Two (2) times a day Unchanged dicyclomine (dicyclomine 10 mg oral capsule) 1 cap by mouth Four (4) times a day Duration: 30 Days Unchanged DME (DME MISCellaneous) See instructions Carpal tunnel syndrome, right Dx G56.01, dispense one cock up wrist splint for right wrist Unchanged FLUoxetine (FLUoxetine 40 mg oral capsule) 1 cap by mouth Once a day Duration: 90 Days Unchanged magnesium hydroxide (Milk of Magnesia 8% oral suspension) 30 Milliliter by mouth Daily at bedtime Unchanged methylcobalamin (Vitamin B12 Methylcobalamin 5000 mcg sublingual tablet) 1 tab(s) under the tongue Once a day Unchanged multivitamin (Multivitamin) 1 tab(s) by mouth Every day Unchanged multivitamin (Vitamin B Complex oral tablet) 1 tab(s) by mouth Every day Unchanged nicotine (nicotine 14 mg/ 24 hr transdermal film, extended release) 1 patch(es) Transdermal Once a day Unchanged nicotine (nicotine 7 mg/ 24 hr transdermal film, extended release) 1 patch(es) Transdermal Once a day Unchanged pantoprazole (pantoprazole 40 mg oral enteric coated tablet) 1 tab(s) by mouth Two (2) times a day Duration: 30 Days Unchanged sucralfate (Carafate 1 g oral tablet) 1 tab(s) by mouth Four (4) times daily-before meals and at bedtime Duration: 30 Days Please take this list to your next doctor s visit. Bring all medications you take, including over the counter medications, herbals and other supplements with you to your doctor s visit. Patients and families are reminded to discard old lists and to update any records with all medication providers or retail pharmacies. Education Materials Unknown Causes of Abdominal Pain (Female) The exact cause of your belly (abdominal) pain is not clear. This does not mean that this is something to worry about. Everyone likes to know the exact cause of the problem. But sometimes with belly pain, there is no clear-cut cause, and this could be a good thing. The good news is that your symptoms can be treated, and you will feel better. Your condition does not seem serious now. But sometimes the signs of a serious problem may take more time to appear. For this reason, it is important for you to watch for any new symptoms, problems, or worsening of your condition. Over the next few days, the abdominal pain may come and go. Or it may be constant. Other common symptoms can include nausea and vomiting. Sometimes it can be difficult to tell if you feel nauseous. You may just feel bad and not connect that feeling to nausea. Constipation, diarrhea, and a fever may go along with the pain. The pain may continue even if treated correctly over the following days. Depending on how things go, sometimes the cause can become clear and may need more or different treatment. Additional evaluations, medicines, or tests may also be needed. Home care Your healthcare provider may prescribe medicine for pain, symptoms, or an infection. Follow the healthcare provider's instructions for taking these medicines. General care Rest as much as you can until your next exam. No strenuous activities. Try to find positions that ease discomfort. A small pillow placed on the abdomen may help relieve pain. Something warm on your abdomen (such as a heating pad) may help, but be careful not to burn yourself. Diet Don t force yourself to eat, especially if having cramps, vomiting, or diarrhea. Water is important so you don't get dehydrated. Soup may also be good. Sports drinks may also help, especially if they are not too acidic. Don't drink sugary drinks as this can make things worse. Take liquids in small amounts. Don t guzzle them. Caffeine sometimes makes the pain and cramping worse. Don t take dairy products if you have vomiting or diarrhea. Don't eat large amounts at a time. Wait a few minutes between bites. Eat a diet low in fiber (called a low-residue diet). Foods allowed include refined breads, white rice, fruit and vegetable juices without pulp, tender meats. These foods will pass more easily through the intestine. Don t have whole-grain foods, whole fruits and vegetables, meats, seeds and nuts, fried or fatty foods, dairy, alcohol and spicy foods until your symptoms go away. Follow-up care Follow up with your healthcare provider, or as advised, if your pain does not begin to improve in the next 24 hours. Call 911 Call 911 if any of these occur: Trouble breathing Confusion Fainting or loss of consciousness Rapid heart rate Seizure When to seek medical advice Call your healthcare provider right away if any of these occur: Pain gets worse or moves to the right lower abdomen New or worsening vomiting or diarrhea Swelling of the abdomen Unable to pass stool for more than 3 days Fever of 100.4 F (38 C) or higher, or as directed by your healthcare provider. Blood in vomit or bowel movements (dark red or black color) Yellow color of eyes and skin (jaundice) Weakness, dizziness Chest, arm, back, neck, or jaw pain Unexpected vaginal bleeding or missed period Can't keep down liquids or water and you are getting dehydrated [id number] [employer]. [address] [place] [address]. All rights reserved. This information is not intended as a substitute for professional medical care. Always follow your healthcare professional's instructions. Additional Information VACCINATE! IT SAVES LIVES! Members of the community who have not yet received the COVID-19 vaccine and would like to receive it can visit one of [facility] vaccine clinics. There are many vaccine clinic locations within the [facility]. For locations and available times, please visit [email or web address] [email or web address] It is important to note that some COVID mobile vaccine clinics are held outdoors and may be canceled in rainy or stormy conditions. To learn more about pediatric vaccinations (ages 5-11), we invite you to visit the [facility] webpage. [email or web address].[email or web address].org/p ages/4103-Wmzmj-Atgdwsjdpfm-Freq zlmest-Acrei-Waigzgpay.html To learn more about the COVID-19 vaccine, we invite you to visit the CDC website for a list of frequently asked questions. https://www.cdc.gov/coronavirus/ 2019-ncov/vaccines/faq.html [facility] [employer] [facility] Patient Portal Access Instructions: Stay connected with your healthcare team and access your personal medical information anytime with the [employer] [facility] Patient Portal. If you would like a full copy of your medical records please contact the [facility] Medical Records Department Thursday through Thursday between 8a.m. and 4:30p.m. Please follow the directions below to access the portal: 1.Access the email account you provided upon registration to the [facility].2.Look for an invitation email from [facility].3.Open the email and access the invitation link: Accept Invitation to [facility] system master4.Fill in the required fonseca to create your account. Sign into [email or web address] with your username and password that you created in the above steps to stay up to date. You can then view a summary of results, a summary of your visits, and the ability to download your summaries to your computer or send the information securely to a physician. Remember that your healthcare information is confidential, so carefully consider who you will allow to register on the [facility] Patient Portal for access to your information. You can also access the [facility] Patient Portal on the [employer]. Simply click on Health Records under Health Data and then click on the [employer] logo. HOW TO SAFELY DISPOSE OF PRESCRIPTION MEDICATIONS Please use one of the following methods to safely dispose of your unused medications. 1.Use a drug disposal kit: the drug disposal pouch allows you to safely discard your old and unused drugs. Ask your nurse to give you one when you are discharged.2.Visit a local take-back location: Many local pharmacies and police departments have programs that collect old and unwanted prescription drugs. Call your local pharmacy or go to http://bit.[employer] Cart Software/6S3Ow0e to find one close to you.3.Make use of household items: Use cat litter or old coffee grounds to dispose medications if other options are not available. Mix your drugs with these household products, seal them in an airtight container and throw it into the garbage. Call [facility]: [phone] to be sure your drugs can be disposed of in this way. Some medicines may require a different approach.4.Never flush your medications down the toilet. IF YOU HAVE BEEN PRESCRIBED AN OPIOIDS FOR PAIN If you have been prescribed an opioid (such as hydrocodone, oxycodone or morphine), it is critical to understand the possible side effects and risks of opioid pain medications. Even when taken as directed, opioids can have several side effects including: Tolerance, meaning you might need to take more of a medication for the same pain relief. Nausea, vomiting and/or constipation. Sleepiness, dizziness, dry mouth, confusion, depression or itching. Physical dependence, meaning you have withdrawal symptoms when a medication is stopped ? this can develop within a few days. KNOW YOUR RESPONSIBILITIES It is important to know exactly how much and how often to take the opioid pain medications you are prescribed. Never take opioids in higher amounts or more often than prescribed. Do not combine opioids with alcohol or other drugs that cause drowsiness, such as benzodiazepines, also known as benzos, including diazepam and alprazolam, muscle relaxants or sleep aids. Never sell or share prescription opioids. This is illegal. Store opioids in a secure place and out of reach of others (including children, family, friends and visitors). The last page(s) of this document has been signed and retained as a CHART COPY Signatures Patient Education Materials Abdominal Pain, Unknown Cause, (Female) Medication Leaflets My discharge plan and instructions have been reviewed and explained to me and IIAM JAMIE R understand my current condition and have read and understand these discharge instructions. I have received a written copy of the plan/instructions. If I have questions, I am aware that I should contact my doctor. 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 Multiplanar reformatted images are provided for review. Automated exposure control, iterative reconstruction, and/or weight based adjustment of the mA/kV was utilized to reduce the radiation dose to as low as reasonably achievable. COMPARISON: None. HISTORY: ORDERING SYSTEM PROVIDED HISTORY: Reason for Exam: pain FINDINGS: Lung bases are clear. Upper abdominal solid organs demonstrate no acute findings. Kidneys enhance symmetrically. There is a subcentimeter hypodensity within the left hepatic lobe too small to characterize however likely representing a cyst or hemangioma. No evidence of obstructive uropathy. Phleboliths are noted in the pelvis. Small bowel and colon are normal in course and caliber, there is a large quantity of stool within the proximal and mid colon without evidence of an acute obstructive or inflammatory process. The appendix appears to be surgically absent. There is mild distal colon diverticulosis without evidence of acute diverticulitis. Urinary bladder is normal in appearance. No suspicious adnexal lesions. Aorta is normal in caliber. No lymphadenopathy. No free air or free fluid. A few splenules are noted adjacent to the spleen. Tiny fat containing periumbilical hernia is noted. Visualized osseous structures are intact. No suspicious osseous lesions. Vertebral body heights are maintained. Few sclerotic densities noted within the pelvis likely represent bone islands. IMPRESSION: Moderate to large quantity of stool within the proximal and mid colon suggestive of constipation, no evidence of an acute intra-process. RECOMMENDATIONS: Unavailable Interpreted by: Herve Hoyt MD Preliminary Report By: Herve Hoyt MD Electronically signed By Herve Hoyt MD Dictated Date: 10/05/2022 5:50:08 AM Prelim Date: 10/05/2022 5:58:00 AM Sign Date: 10/05/2022 5:58:00 AM Ordering Provider: RAJANI HERNANDEZ [facility] 10-05-2022 Note ORIGINAL EXAMINATION: CT OF THE ABDOMEN AND PELVIS WITH CONTRAST 10/05/2022 5:35 am TECHNIQUE: CT of the abdomen and pelvis was performed with the administration of intravenous contrast. Multiplanar reformatted images are provided for review. Automated exposure control, iterative reconstruction, and/or weight based adjustment of the mA/kV was utilized to reduce the radiation dose to as low as reasonably achievable. COMPARISON: None. HISTORY: ORDERING SYSTEM PROVIDED HISTORY: Reason for Exam: pain FINDINGS: Lung bases are clear. Upper abdominal solid organs demonstrate no acute findings. Kidneys enhance symmetrically. There is a subcentimeter hypodensity within the left hepatic lobe too small to characterize however likely representing a cyst or hemangioma. No evidence of obstructive uropathy. Phleboliths are noted in the pelvis. Small bowel and colon are normal in course and caliber, there is a large quantity of stool within the proximal and mid colon without evidence of an acute obstructive or inflammatory process. The appendix appears to be surgically absent. There is mild distal colon diverticulosis without evidence of acute diverticulitis. Urinary bladder is normal in appearance. No suspicious adnexal lesions. Aorta is normal in caliber. No lymphadenopathy. No free air or free fluid. A few splenules are noted adjacent to the spleen. Tiny fat containing periumbilical hernia is noted. Visualized osseous structures are intact. No suspicious osseous lesions. Vertebral body heights are maintained. Few sclerotic densities noted within the pelvis likely represent bone islands. IMPRESSION: Moderate to large quantity of stool within the proximal and mid colon suggestive of constipation, no evidence of an acute intra-process. RECOMMENDATIONS: Unavailable Interpreted by: Herve Hoyt MD Preliminary Report By: Herve Hoyt MD Electronically signed By Herve Hoyt MD Dictated Date: 10/05/2022 5:50:08 AM Prelim Date: 10/05/2022 5:58:00 AM Sign Date: 10/05/2022 5:58:00 AM Ordering Provider: RAJANI HERNANDEZ [facility] 09-10-2022 Note Patient Outreach (IN [facility]) MATT VITALE ([id number]) 1980 F Date Time Provider Department 09/10/22 EUGENIO BAR During your visit today, we recorded the following information about you: Allergies As of Date: 09/10/2022 Noted Allergy Reaction PREDNISONE 11/14/2015 1 - Mental Status Change Comments: sweating Date Reviewed: 01/07/2021 Reviewed by: Shasha Alston APRN.[employer] - Fully Assessed Visit Diagnosis:Encounter for screening mammogram for breast cancer [Z12.31] Order(s):[facility] SCREENING [[id number]] Order #: [id number] FUTURE Prescriptions as of 09/15/2022 - Amphetamine-Dextroamphetamine (ADDERALL) 30 mg tablet Take 0.5 tablets by mouth twice daily for 30 days. - Amphetamine-Dextroamphetamine (ADDERALL) 30 mg tablet Take 0.5 tablets by mouth twice daily for 30 days. - vitamin b complex (B COMPLETE) tab Take 1 tablet by mouth once daily. - multivitamin tablet Take 1 tablet by mouth once daily. - cholecalciferol (VITAMIN D3) 50 mcg (2,000 unit) tablet Take 1 tablet by mouth once daily. - Amphetamine-Dextroamphetamine (ADDERALL) 30 mg tablet Take 0.5 tablets by mouth twice daily for 7 days. - chrm/vineg/bit-orang peel/gr t (APPLE CIDER VINEGAR PLUS ORAL) Take by mouth. - Multivitamin capsule Take 1 capsule by mouth once daily. - ZINC ORAL Take by mouth. - naproxen (NAPROSYN) 500 mg tablet Take 1 tablet by mouth twice daily as needed (pain/inflammation, take with food.). - acetaminophen (TYLENOL ORAL) Take 1 tablet by mouth as needed (takes due to allergy). - ferrous sulfate (IRON) 325 mg (65 mg iron) tablet Take 325 mg by mouth daily with breakfast. Problem List As Of Date 09/10/2022 Noted Resolved PAIN ABDOMEN( Right Lower Quadrant) [R10.31] 10/31/2008 Cervicalgia [M54.2] 05/19/2013 08/01/2013 Pain in limb [M79.609] 05/19/2013 Carpal tunnel syndrome on both sides [G56.03] 07/06/2013 Neck pain [M54.2] 07/06/2013 DDD (degenerative disc disease), cervical [M50.*07/06/2013 DJD (degenerative joint disease), cervical [M47*07/06/2013 08/11/2013 Impingement syndrome of right shoulder [M75.41] 08/01/2013 Cervical spondylosis without myelopathy [M47.81*08/01/2013 Cervical radiculitis [M54.12] 08/01/2013 Migraines [G43.909] 05/16/2016 ADHD (attention deficit hyperactivity disorder)*05/16/2016 Tobacco use [Z72.0] 05/16/2016 Ulnar neuropathy of left upper extremity [G56.2*06/19/2016 Left carpal tunnel syndrome [G56.02] 06/19/2016 Obesity, Class I, BMI 30-34.9 [E66.9] 09/29/2018 Encounter Status:Closed by LINDA GRIMALDO on 09/15/22 [facility] 09-25-2021 Note Patient Outreach (IN [facility]) MATT VITALE ([id number]) 1980 F Date Time Provider Department 09/25/21 EUGENIO BAR During your visit today, we recorded the following information about you: Allergies As of Date: 09/25/2021 Noted Allergy Reaction PREDNISONE 11/14/2015 1 - Mental Status Change Comments: sweating Date Reviewed: 01/07/2021 Reviewed by: Shasha Alston APRN.[employer] - Fully Assessed Visit Diagnosis:Encounter for screening mammogram for breast cancer [Z12.31] Order(s):[facility] SCREENING [[id number]] Order #: [id number] FUTURE Prescriptions as of 09/30/2021 - Amphetamine-Dextroamphetamine (ADDERALL) 30 mg tablet Take 0.5 tablets by mouth twice daily for 30 days. - Amphetamine-Dextroamphetamine (ADDERALL) 30 mg tablet Take 0.5 tablets by mouth twice daily for 30 days. - vitamin b complex (B COMPLETE) tab Take 1 tablet by mouth once daily. - multivitamin tablet Take 1 tablet by mouth once daily. - cholecalciferol (VITAMIN D3) 50 mcg (2,000 unit) tablet Take 1 tablet by mouth once daily. - Amphetamine-Dextroamphetamine (ADDERALL) 30 mg tablet Take 0.5 tablets by mouth twice daily for 7 days. - chrm/vineg/bit-orang peel/gr t (APPLE CIDER VINEGAR PLUS ORAL) Take by mouth. - Multivitamin capsule Take 1 capsule by mouth once daily. - ZINC ORAL Take by mouth. - naproxen (NAPROSYN) 500 mg tablet Take 1 tablet by mouth twice daily as needed (pain/inflammation, take with food.). - acetaminophen (TYLENOL ORAL) Take 1 tablet by mouth as needed (takes due to allergy). - ferrous sulfate (IRON) 325 mg (65 mg iron) tablet Take 325 mg by mouth daily with breakfast. Problem List As Of Date 09/25/2021 Noted Resolved PAIN ABDOMEN( Right Lower Quadrant) [R10.31] 10/31/2008 Cervicalgia [M54.2] 05/19/2013 08/01/2013 Pain in limb [M79.609] 05/19/2013 Carpal tunnel syndrome on both sides [G56.03] 07/06/2013 Neck pain [M54.2] 07/06/2013 DDD (degenerative disc disease), cervical [M50.*07/06/2013 DJD (degenerative joint disease), cervical [M47*07/06/2013 08/11/2013 Impingement syndrome of right shoulder [M75.41] 08/01/2013 Cervical spondylosis without myelopathy [M47.81*08/01/2013 Cervical radiculitis [M54.12] 08/01/2013 Migraines [G43.909] 05/16/2016 ADHD (attention deficit hyperactivity disorder)*05/16/2016 Tobacco use [Z72.0] 05/16/2016 Ulnar neuropathy of left upper extremity [G56.2*06/19/2016 Left carpal tunnel syndrome [G56.02] 06/19/2016 Obesity, Class I, BMI 30-34.9 [E66.9] 09/29/2018 Encounter Status:Closed by EPIC, PRODUSER on 09/30/21 [facility] documented as of this encounter (statuses as of 09/30/2021) [facility]01-[facility] History of Past illness Narrative* Problem Noted Date Resolved Date DJD (degenerative joint disease), cervical 07/0608/11/2013 Cervicalgia 05/19/2013 08/01/2013 documented as of this encounter (statuses as of 09/15/2022) [facility] Appointment Date:05/24/2021 10:00:00 AM Scheduled Provider:RM GARCIA DO Location:[facility] Appointment Type:PC OV [facility] Evaluation + Plan note Future Appointments Appointment Date:04/30/2022 09:30:00 AM Scheduled Provider:RM GARCIA DO Location:[facility] Appointment Type:PC OV Future Scheduled Tests Laboratory* Lipid Profile 01/29/22 * Complete Metabolic Panel 01/29/22 Radiology* US Thyroid 05/10/22 [facility] Evaluation + Plan note Future Appointments Appointment Date:05/21/2022 11:30:00 AM Scheduled Provider:RM GARCIA DO Location:[facility] Appointment Type:PC OV Appointment Date:07/23/2022 10:30:00 AM Scheduled Provider:RM GARCIA DO Location:[facility] Appointment Type:PC OV Future Scheduled Tests Laboratory* Lipid Profile 01/29/22 * Complete Metabolic Panel 01/29/22 Radiology* MA Mammo Diagnostic Bilateral w/Noah 09/09/22 * US Breast Right Complete 09/09/22 * US Thyroid 05/10/22 [facility] Evaluation + Plan note Future Appointments Appointment Date:07/23/2022 10:30:00 AM Scheduled Provider:RM GARCIA DO Location:[facility] Appointment Type:PC OV Future Scheduled Tests Laboratory* Lipid Profile 01/29/22 * Complete Metabolic Panel 01/29/22 Radiology* MA Mammo Diagnostic Bilateral w/Noah 09/09/22 * US Breast Right Complete 09/09/22 [facility] Evaluation + Plan note Future Appointments Appointment Date:10/08/2022 10:00:00 AM Scheduled Provider: Location:[facility] Appointment Type:US Abdomen Complete Appointment Date:12/10/2022 11:30:00 AM Scheduled Provider:RM GARCIA DO Location:[facility] Appointment Type:PC OV Future Scheduled Tests Laboratory* Lipid Profile 01/29/22 * Complete Metabolic Panel 01/29/22 Radiology* MA Mammo Diagnostic Bilateral w/Noah 09/24/22 * US Abdomen Complete 10/08/22 * US Breast Right Complete 09/24/22 * US Thyroid 06/09/23 [facility] Evaluation + Plan note Future Appointments Appointment Date:12/10/2022 11:30:00 AM Scheduled Provider:RM GARCIA DO Location:[facility] Appointment Type:PC OV Future Scheduled Tests Laboratory* Lipid Profile 01/29/22 * Complete Metabolic Panel 01/29/22 Radiology* MA Mammo Diagnostic Bilateral w/Noah 09/24/22 * US Breast Right Complete 09/24/22 * US Thyroid 06/09/23 [facility] Evaluation + Plan note Future Appointments Appointment Date:04/01/2023 10:30:00 AM Scheduled Provider:RM GARCIA DO Location:[facility] Appointment Type:PC OV Future Scheduled Tests Radiology* MA Mammo Diagnostic Bilateral w/Noah 09/24/22 * US Breast Right Complete 09/24/22 * US Thyroid 06/09/23 [facility] Evaluation note* Diagnosis Encounter for screening mammogram for breast [facility] Narrative No data available for this section [facility] Hospital Discharge instructions No data available for this section [facility] Progress note No data available for this section [facility] Reason for referral (narrative)* Diagnostic Procedure Only (Routine) - Pending Review Specialty Diagnoses / Procedures Referred By Contac t Referred To Contact [facility] Diagnoses Encounter for screening mammogram for breast cancer Procedures DOUGLAS SCREENING SCREENING MAMMOGRAPHY BI 2-VIEW BREAST INC Eugenio Carpenter, DO [address] [place] [address] [facility] [address] [place] [address] Referral ID Status Reason Start Date Expiration Date Visits Requested Visits Authorized [id number] Pending Review Auto-Generat ed Referral 09/25/2021 10/25/2022 [facility] Diagnostic Procedure Only (Routine) - Pending Review Specialty Diagnoses / Procedures Referred By Art rodriguez Referred To Contact [facility] Diagnoses Encounter for screening mammogram for breast cancer Procedures DOUGLAS SCREENING SCREENING MAMMOGRAPHY BI 2-VIEW BREAST INC Eugenio Carpenter, DO [address] [place] [address] [facility] [address] [place] [address] Referral ID Status Reason Start Date Expiration Date Visits Requested Visits Authorized [id number] Pending Review Auto-Generat ed Referral 09/10/2022 10/10/2023 1 1 [facility] Summary Purpose Family History No Family History Records FoundNo Family History Records Found No data available for this section No Family History Records Found Advance Directives No Advanced Directives Records FoundDocuments on File Type Date Recorded 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 Advance Directives and Livin g Will 01/15/2019 8:50 PM Documents on File Type Date Recorded 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 Advance Directive(s) 09/28/2018 10:32 AM Advance Directive(s) 05/30/2016 1:24 PM Advance Directive(s) 05/27/2016 3:34 PM Assessments Diagnosis Fish hook in forearm- Primary Additional Source Comments INFORMATION SOURCE (unrecogn ized section and content) DATE CREATED AUTHOR AUTHOR'S ORGANIZ ATION 09/17/2022 [facility] DATE CREATED AUTHOR AUTHOR'S ORGANIZ ATION 06/12/2023 [facility] ([place]) Reason for Visit (unrecogniz ed section and content) Akin Comer RN - 01/15/2019 10:15 PM EDTGAkin mclaughlin RN - 01/15/2019 9:40 PM EDTGAkin mclaughlin RN - 01/15/2019 9:39 PM EDTGAkin mclaughlin RN - 01/15/2019 8:38 PM EDT ED Notes (unrecognized secti on and content) Pt left before receiving Augmentin first dose and discharge paperwork. Has prescription for Augmentin. 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 Pt states has recently had tetanus shot, no shot needed at this time. ANGELA Ames in with pt. Has suture tray in room, ready to remove fishing lure. Provided pt with large bandaid and bacitracin pkt to take home. Kwaku MILLER in to speak with pt. Pt got fishing lure caught in skin to right arm at elbow. documented in this encounter Source Comments (unrecognize d section and content) In the event this informatio n is protected by the Federal Confidentiality of Alcohol and Drug Abuse Patient Records regulations: The Federal rules restrict any use of the information to criminally investigate or prosecute any alcohol or drug abuse patient.[facility] the event this information is protected by the Federal Confidentiality of Alcohol and Drug Abuse Patient Records regulations: The Federal rules restrict any use of the information to criminally investigate or prosecute any alcohol or drug abuse patient.[facility] Care Teams (unrecognized sec tion and content) Photogrammetric Surveyor Relationship Specialty Start Date End Date Eugenio Bar DO [address] [place] [address] PCP - General Family Medicine 07/04/15 Care Team (unrecognized sect ion and content) Care Team Personnel Name: RM GARCIA DO Position: P4 Physician - Primary Care Member Role: Primary Care Physician Address: Address: [address] [place] [address] Care Team Related Persons Name: CORNELIUS OSWALD Care Team Personnel Name: RM GARCIA DO Position: P4 Physician - Primary Care Med Service: Active Provider Member Role: Primary Care Physician Address: Address: [address] [place] [address] Care Team Related Persons Name: CORNELIUS OSWALD Care Team Personnel Name: RM GARCIA DO Position: P4 Physician - Primary Care Member Role: Primary Care Physician Address: Address: [address] [place] [address] Care Team Related Persons Name: CORNELIUS OSWALD Care Team Personnel Name: RM GARCIA DO Position: P4 Physician - Primary Care Member Role: Primary Care Physician Address: Address: [address] [place] [address] Care Team Related Persons Name: CORNELIUS OSWALD FOR RECORDS PERTAINING TO PATIENTS WHO ARE OR HAVE BEEN ENROLLED IN A CHEMICAL DEPENDENCY/SUBSTANCEABUSE PROGRAM, SOME INFORMATION MAY BE OMITTED. This clinical summary was aggregated from multiple sources. Caution should be exercised in using it in the provision of clinical care. This summary normalizes information from multiple sources, and as a consequence, information in this document may materially change the coding, format and clinical context of patient data. In addition, data may be omitted in some cases. CLINICAL DECISIONS SHOULD BE BASED ON THE PRIMARY CLINICAL RECORDS. [facility] [employer] [facility]. provides no warranty or guarantee of the accuracy or completeness of information in this document.
--- NOTE | 2023-07-27 12:00 | COLBX_PTH ---
PATHOLOGY RESULTS PATIENT: MATT ALFONSO LOC: EN U#:[id number] AGE/SX: 43/F ROOM: RE07/27/[address]: Dr. Lauro Atwood DO : 1980 BED: DIS: 07/27/2023 SPEC #: [id number] RECD: 07/27/23 13:22 STATUS: TEJAS THIEN #: [id number] LILI: 07/27/23 12:[address]: Lauro Atwood DEPT: SURGICAL PATHOLOGY RECD BY: Bryanna Lechuga ENTERED: 07/27/23 13:22 SP TYPE: COLON BX OTHR DR: Dr. Boogie Chapa DO Tissues: Ileum, NOS COLON BIOPSY Sigmoid colon biopsy Procedures: Surgery Specimen Level IV HEADER OPERATION: Colonoscopy, biopsy PRE-OP DIAGNOSIS: Loose stools, screening TISSUE SUBMITTED: A - Terminal ileum biopsy, B - Random colon biopsy, C - Sigmoid polyp biopsy MICROSCOPIC DIAGNOSIS A. Terminal ileum, biopsy: Fragments of small intestinal mucosa, no pathologic diagnosis. B. Colon, random biopsy: Fragments of colonic mucosa, no pathologic diagnosis. C. Sigmoid polyp, biopsy: Fragments of hyperplastic polyp. ALEXYS:shamir 07/28/2023 MICROSCOPIC DESCRIPTION Slides are reviewed. GROSS DESCRIPTION A - Received in fixative is one container labeled with the patient's name and designated terminal ileum. The specimen consists of two irregular fragments of light iqbal soft tissue that in aggregate measure 0.6 x 0.3 x 0.1 cm. The specimen is totally submitted in one cassette. B - Received in fixative is one container labeled with the patient's name and designated random colonic biopsy. The specimen consists of multiple irregular fragments of light iqbal soft tissue that in aggregate measure 1.5 x 0.3 x 0.1 cm. The specimen is totally submitted in one cassette. C - Received in fixative is one container labeled with the patient's name and designated sigmoid polyp biopsy. The specimen consists of two irregular fragments of light iqbal soft tissue that in aggregate measure 0.6 x 0.3 x 0.1 cm. The specimen is totally submitted in one cassette. / ALEXYS:shamir 07/27/2023 TC:1 CPT: 26412 x3
--- NOTE | 2023-07-27 12:44 | OP.COLON_ITS ---
Patient Name: Ethan Monte Procedure Date: 07/27/2023 12:09 PM Date of : 1980 Age: 43 Procedure: Colonoscopy Indications: Screening for colorectal malignant neoplasm Providers: Lauro Atwood DO Medicines: Monitored Anesthesia Care Patient Profile: This is a 43 year old female. Refer to note in patient chart for documentation of history and physical. Last Colonoscopy: none. The patient's first colonoscopy is today. Complications: No immediate complications. Procedure: Pre-Anesthesia Assessment: - Prior to the procedure, a History and Physical was performed, and patient medications and allergies were reviewed. The patient is competent. The risks and benefits of the procedure and the sedation options and risks were discussed with the patient. All questions were answered and informed consent was obtained. Patient identification and proposed procedure were verified by the physician in the pre-procedure area. Mental Status Examination: alert and oriented. Airway Examination: normal oropharyngeal airway and neck mobility. Respiratory Examination: clear to auscultation. CV Examination: normal. Prophylactic Antibiotics: The patient does not require prophylactic antibiotics. Prior Anticoagulants: The patient has taken no anticoagulant or antiplatelet agents. ASA Grade Assessment: II - A patient with mild systemic disease. After reviewing the risks and benefits, the patient was deemed in satisfactory condition to undergo the procedure. The anesthesia plan was to use monitored anesthesia care (MAC). Immediately prior to administration of medications, the patient was re-assessed for adequacy to receive sedatives. The heart rate, respiratory rate, oxygen saturations, blood pressure, adequacy of pulmonary ventilation, and response to care were monitored throughout the procedure. The physical status of the patient was re-assessed after the procedure. After I obtained informed consent, the scope was passed under direct vision. Throughout the procedure, the patient's blood pressure, pulse, and oxygen saturations were monitored continuously. The Colonoscope was introduced through the anus and advanced to the terminal ileum. The colonoscopy was performed without difficulty. The patient tolerated the procedure well. The quality of the bowel preparation was fair. The terminal ileum, ileocecal valve, appendiceal orifice, and rectum were photographed. Scope In: 12:19:25 PM Scope Withdrawal Time 0 hours 13 minutes 21 seconds Scope Out: 12:36:53 PM Total Procedure Duration Time 0 hours 17 minutes 28 seconds Findings: The perianal and digital rectal examinations were normal. A 7 mm polyp was found in the sigmoid colon. The polyp was sessile. The polyp was removed with a cold snare. Resection and retrieval were complete. Verification of patient identification for the specimen was done. Estimated blood loss was minimal. Stool was found in the recto-sigmoid colon, in the sigmoid colon, in the transverse colon and in the cecum. An area of mildly congested mucosa was found in the sigmoid colon and in the transverse colon. Biopsies were taken with a cold forceps for histology. Verification of patient identification for the specimen was done. Estimated blood loss was minimal. Localized mild inflammation characterized by erosions was found in the terminal ileum. Biopsies were taken with a cold forceps for histology. Verification of patient identification for the specimen was done. Estimated blood loss was minimal. A few small and large-mouthed diverticula were found in the recto-sigmoid colon, sigmoid colon and descending colon. Impression: - Preparation of the colon was fair. - One 7 mm polyp in the sigmoid colon, removed with a cold snare. Resected and retrieved. - Stool in the recto-sigmoid colon, in the sigmoid colon, in the transverse colon and in the cecum. - Congested mucosa in the sigmoid colon and in the transverse colon. Biopsied. - Mild inflammation was found in the ileum secondary to ileitis. Biopsied. - Diverticulosis in the recto-sigmoid colon, in the sigmoid colon and in the descending colon. Recommendation: - Discharge patient to home. - Resume previous diet. - Continue present medications. - Await pathology results. - Repeat colonoscopy in 3 years for surveillance. Procedure Code(s): --- Professional --- 63381, Colonoscopy, flexible; with removal of tumor(s), polyp(s), or other lesion(s) by snare technique 40496, 59, Colonoscopy, flexible; with biopsy, single or multiple CPT copyright 2021 [employer]. All rights reserved. The codes documented in this report are preliminary and upon grove superintendent review may be revised to meet current compliance requirements. Lauro Atwood DO 07/27/2023 12:44:24 PM This report has been signed electronically. Number of Addenda: 0 Note Initiated On: 07/27/2023 12:09 PM
--- NOTE | 2023-07-27 12:44 | OP.CCLET_ITS ---
07/27/2023 Boogie Chapa Do Re : Colonoscopy procedure for Ethan Monte Dear Sammi This procedure was performed on Thursday, July 27, 2023. My impressions and recommendations are as follows: Impressions : - Preparation of the colon was fair. - One 7 mm polyp in the sigmoid colon, removed with a cold snare. Resected and retrieved. - Stool in the recto-sigmoid colon, in the sigmoid colon, in the transverse colon and in the cecum. - Congested mucosa in the sigmoid colon and in the transverse colon. Biopsied. - Mild inflammation was found in the ileum secondary to ileitis. Biopsied. - Diverticulosis in the recto-sigmoid colon, in the sigmoid colon and in the descending colon. Recommendations : - Discharge patient to home. - Resume previous diet. - Continue present medications. - Await pathology results. - Repeat colonoscopy in 3 years for surveillance. My findings are described in the full procedure note, which is enclosed. If I can be of further assistance, please feel free to contact me at . Sincerely, Lauro Atwood DO 07/27/2023 12:44:24 PM This report has been signed electronically.
== END 2023-07-27 13:34 | disposition home or self-care (01) ==
LOC: EN 11:26 → AC 11:28
PROVIDERS: PCP Student in an Organized Health Care Education/Training Program; Referring Provider Student in an Organized Health Care Education/Training Program; Visit Provider Internal Medicine Gastroenterology
PROC: 0DJD8ZZ Inspection of Lower Intestinal Tract, Via Natural or Artificial Opening Endoscopic (ICD-10-PCS; CPT 45378; principal; 2023-07-27 11:55)
DX: Z12.11 Encounter for screening for malignant neoplasm of colon (principal); K63.5 Polyp of colon; K57.30 Diverticulosis of large intestine without perforation or abscess without bleeding; R19.7 Diarrhea, unspecified; F17.200 Nicotine dependence, unspecified, uncomplicated
CPT/HCPCS: 45380; 45385; 88305; J2405

== ENCOUNTER 2024-01-14 07:48 | Day surgery (SDC) | payer OTHER, SELFPAY ==
[2024-01-14] MEDS: Lactated Ringers 1,000 ML 15 ML IV (08:11)
--- NOTE | 2024-01-14 08:11 | PCM.PRE.AN2 ---
ASA Classification* ASA Classification ASA Classification: 2 Assessment & Plan Anesthesia* Anesthesia Assessment Anesthesia Assessment: Discussed sedation and/or anesthesia options, risks, benefits, and alternatives with patient/parents/legal guardian/POA. Questions invited. The patient/parents/legal guardian/POA seems to understand and agrees to proceed with anesthesia plan. Reviewed the physical assessment, medical history, allergy history and patient home medications list prior to surgery/procedure/anesthetic and documented any changes. Performed airway and anesthesia risk assessments. Anesthesia Type Anesthesia Type: MAC Anesthesia Focused Assessment* Airway Assessment Mouth opens: >3 cm Mallampati Score: II Focused Labs Anesthesia Preop lab: CBC WBC 6.3 K/mm3 (4.4-11.0) 12/17/22 14:44 RBC 4.07 M/mm3 (4.2-5.4) L 12/17/22 14:44 Hgb 13.7 g/dL (12.0-15.0) 12/17/22 14:44 Hct 39.6 % (37-47) 12/17/22 14:44 Plt Count 299 K/mm3 (150-450) 12/17/22 14:44 CHEMISTRY Potassium 3.9 mmol/L (3.5-5.1) 12/17/22 14:44 Sodium 137 mmol/L (136-145) 12/17/22 14:44 BUN 16 mg/dL (7-18) 12/17/22 14:44 Creatinine 0.98 mg/dL (0.55-1.02) 12/17/22 14:44 Glucose 97 mg/dL (74-106) 12/17/22 14:44 COAG Pre-Assessment Diagnosis/Proposed Procedure Planned Operative Procedure(s): EGD Anesthesia History Anesthesia History - corporate relations director: Anesthesia History - corporate relations director Hx Hospitalization No 01/07/24 14:35 Any Problems With Anesthesia No 01/07/24 14:35 Cholinesterase deficiency No 01/07/24 14:35 You/Your Family Experience No 01/07/24 14:35 fever (hyperthermia) with Relationship Recent Exposure to Contagious No 07/27/23 11:18 Disease Does patient have nerve No 01/07/24 14:35 stimulator Patient instructed to have device shut off --Does patient have Pacemaker or ICD? When Was Last Pacemaker Check QUESTION #4 FULL TEXT: You/Your Family Experience fever (hyperthermia) with Anesthesia Last Oral Intake Last Oral intake: Last Oral Intake NPO since Meds taken in AM with sips of water? Meds patient instructed to take am of surgery PONV PONV - corporate relations director: PONV - corporate relations director Female Yes 01/07/24 14:35 HX of Motion Sickness Yes 01/07/24 14:35 HX of N/V After Surgery Yes 01/07/24 14:35 Non-Smoker No 01/07/24 14:35 Duration of Surgery greater No 01/07/24 14:35 than 60 minutes Number of Risk Factors 3 01/07/24 14:35 PONV Score Moderate Risk 01/07/24 14:35 Height & Weight Height & Weight: Anesthesia: Height & Weight Height 5 ft 10 in 07/27/23 11:18 Respiratory Assessment Respiratory Assessment - corporate relations director: Respiratory Tract Infection Hx - corporate relations director Hx Respiratory Tract Infection No 01/07/24 14:35 STOP Sleep Apnea STOP Sleep Apnea - corporate relations director: STOP Sleep Apnea - corporate relations director Hx Hypertension No 01/07/24 14:35 Hx Sleep Apnea No 01/07/24 14:35 CPAP BIPAP Do you snore loudly (louder No 01/07/24 14:35 than talking or can be heard Do you often feel tired/ Yes 01/07/24 14:35 fatigued/ sleepy during daytime? Has anyone observed you stop No 01/07/24 14:35 breathing during sleep? STOP Results Negative 01/07/24 14:35 QUESTION #5 FULL TEXT : Do you snore loudly (louder than talking or can be heard through closed doors)? 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 Specify any problems Hx of Preganancy in last 3 No 01/07/24 14:35 Months Nurse Filling Out Transfusion CRISTIN 01/07/24 14:35 & Questions: Date: 01/07/24 01/07/24 14:35 Time: 14:43 01/07/24 14:35 Patient unable to answer at this time (ie. confused, unrespo /Reproduction History /Reproductive History - corporate relations director: /Reproductive Hx- corporate relations director Hx Now No 01/07/24 14:35 Gestational Age (in weeks): EDC: Hx Hx Para Hx Section SAB No 01/07/24 14:35 Active Medications Active Medications: Current Medications Generic Name Dose Route Start Last Admin Trade Name Freq PRN Reason Stop Dose Admin Lactated Ringer's 1,000 mls @ 15 mls/hr 01/14/24 08:00 IV .Q48H HALEY PFSH Medical History Fatty liver Heartburn Gastric reflux Wears glasses Anemia Easy bruising Migraine headache Dietary restriction History of IBS Smoker Abdominal pain Nerve damage Hip pain Fatigue Right carpal tunnel syndrome Blepharitis of right eye ADD (attention deficit disorder) Secondary insomnia HLD (hyperlipidemia) Thyroid nodule Enlarged thyroid Panic attacks Anxiety Depression Esophageal dysphagia Black stools Home Medications ?Medication ?Instructions ?Recorded ?Last Taken ?Type dextroamphetamine-amphetamine 30 15 mg PO DAILY 08/12/14 Unknown History mg tablet (Adderall) cholecalciferol (vitamin D3) 50 50 mcg PO DAILY 09/22/22 Unknown History mcg (2,000 unit) capsule mecobalamin (vitamin B12) 5,000 5,000 mcg PO DAILY 09/22/22 Unknown History mcg disintegrating tablet Allergy/AdvReac Type Severity Reaction Status Date / Time prednisone Allergy Swelling Verified 01/14/24 08:10 red dye Allergy Hives Verified 01/14/24 08:10 Family History Father Anemia Arthritis Heart disease Kidney disease Hypertension Mother Anemia Arthritis HLD (hyperlipidemia) Hypertension Kidney disease Surgical History History of appendectomy S/P carpal tunnel release H/O total hysterectomy Social History Smoking Status: Light Smoker (<10/day) alcohol intake: current Review of Systems (Anesthesia) ROS Narrative System reviewed and no additional complaints, except as documented.
[2024-01-14 08:12] VITALS: BP 129/90; PULSE 71; RESP 18; TEMP 36.6; O2SAT 100; BMI 26.7
--- NOTE | 2024-01-14 08:14 | PCM.HP.BLA ---
History and Physical Date of Admission: 01/14/24 MATT ALFONSO, is a 43 F who presents to the office today for follow up. PCP OV 3 with loose/black stools and mild dysphagia. PPI, cholestyramine started. ? Biochemical 05.03.22 CBC, CMP, LFT, Lipids without pertinent abnormality. ? Fecal Occult WNL *BGI established 12.17.22 gluten free diet recommended by PCP has been helpful. She has been having postprandial loose stools, bloating and burning starting in the morning; will have abdominal pain if she pushes the amount of food intake. Onset approximately a year prior. Diet consists of yogurt, salads, fruits and vegetables which she eats every 12 hours. ? Biochemical CBC, ESR, CMP, CRP, LDH, amylase, lipase, folate, cortisol, GAME, JOSE, celiac without pertinent abnormality ? B12 H950, cANCA H1:20??? RAST Class 1: wheat, egg white, egg whole ? Stool calprotectin, elastase, C.difficile, EP, lactoferrin WNL Contact 12.29.22 with biochemical results, can start Xifaxan to address possible SIBO and avoidance of food sensitivities. OV 05.20.23 continues to have urgent loose stools with urgency incontinence with mucous and bloating occurring several times a week and last the entire day; since cessation of food sensitivities symptoms are no longer postprandial, has also gone milk/sour cream/ice cream and this avoidance has improved the food trigger. Currently taking Prozac; but feels she is easily stressed and anxious. Colonoscopy 07.27.23 Preparation of the colon was fair. One 7 mm polyp in the sigmoid colon, removed with a cold snare. Resected and retrieved. Stool in the recto-sigmoid colon, in the sigmoid colon, in the transverse colon and in the cecum. Congested mucosa in the sigmoid colon and in the transverse colon. Biopsied. Mild inflammation was found in the ileum secondary to ileitis. Biopsied. Diverticulosis in the recto-sigmoid colon, in the sigmoid colon and in the descending colon. OV 7.17.24 pt reports that she has made dietary changes to manage her diarrhea. Pt reports that she has continued trouble swallowing food, is unsure if she has ever had an EGD. ROS Const Constitutional: Positive for fatigue and headache(s); No fever(s) or weight change ENT ENT: Positive for headache(s) and difficulty swallowing Gastro GI: Positive for bloating, diarrhea, difficulty swallowing and excessive flatus; No abdominal pain, belching, change in bowel habits, change in stool character, coffee ground emesis, constipation, cramping, heartburn, feeling full early, incontinent of stools, Vomiting blood/hematemesis, Blood in stool, loose stools, Black,tarry stools, nausea/dyspepsia, pain with swallowing, vomiting or other Musc Musculoskeletal: Positive for joint pain and back pain Skin Skin: No yellowing of the eye or itchy eyes Neuro Neurology: Positive for headache(s) Psych Psychiatric: No anxiety and No depression Endo Endocrine: Positive for fatigue; No weight change Aller/Imm Allergy/Immunologic: No itchy eyes Doe/Lymp Hematologic/Lymphatic: Positive for easy bruising; No easy bleeding Exam Const General: cooperative and comfortable Nutritional Appearance: average body habitus and well nourished HENMO Head: normal to inspection Ears: hearing grossly normal bilaterally Nose: external nose normal Face and sinus: normal facial exam Mouth: oral mucosae normal Throat: posterior oropharynx normal Eyes General: appearance normal, both eyes and all related structures Neck Neck: normal visual inspection Chest Chest palpation & inspection: normal inspection of the chest and normal palpation of entire chest wall Resp Effort & Inspection: normal respiratory effort Auscultation: Bilateral: Clear to Auscultation Cardio Palpation: normal PMI Rate: regular rate Rhythm: regular rhythm GI Inspection: normal to inspection Auscultation: normal bowel sounds Percussion: normal to percussion Palpation: no hepatosplenomegaly Skin General: no rashes or lesions noted Neuro General: patient alert Extrem General: normal to inspection Psych Affect: normal affect Assessment and Plan Assessment and Plan (1) Loose stools: Status: Chronic Plan: The differential diagnosis for her diarrhea is a an accelerated gastrocolic reflex, bile acid diarrhea, exocrine pancreatic insufficiency, Endocrinopathy, infectious enterocolitis, inflammatory bowel disease, infectious colitis. She will undergo biochemical testing in a gastric emptying study to see if she truly has accelerated gastrocolic reflex. Once her stools are back we will discuss recommendations for her. We put her on colestipol and dicyclomine. I suspect that she has bile acid diarrhea. I suspect that she also has elements of IBS with diarrhea. She underwent colonoscopy all way to the terminal ileum. Random biopsies not show any signs of inflammatory bowel disease. She was able to wean herself off of colestipol and dicyclomine and has been doing very well and regarding her diarrhea at this time. (2) Encounter for screening for malignant neoplasm of colon: Status: Chronic Plan: Her colonoscopy was normal without any polyps. (3) Dysphagia: Status: Acute Plan: She is having esophageal dysphagia. She will undergo an upper endoscopy to evaluate upper GI tract. She was explained alternatives, risk, benefits including obvious any bleeding, infection, sepsis, perforation, need for emergent urgent . She will have an ASA of 3. I have examined the patient and the H&P has been reviewed. There are no clinical changes since date of exam.
--- NOTE | 2024-01-14 08:30 | EGD_PTH ---
PATIENT: MATT VITALE LOC: EN U#:[id number] AGE/SX: 43/F ROOM: RE01/14/[address]: Dr. Lauro Atwood DO : 1980 BED: DIS: 01/14/2024 SPEC #: [id number] RECD: 01/14/24 09:22 STATUS: TEJAS THIEN #: [id number] LILI: 01/14/24 08:[address]: Lauro Atwood DEPT: SURGICAL PATHOLOGY RECD BY: Dc Calhoun ENTERED: 01/14/24 11:39 SP TYPE: EGD BIOPSY OT DR: Dr. Boogie Chapa DO Tissues: A - Esophagus, NOS B - Stomach, NOS C - Gastric mucous membrane D - Duodenum, NOS Procedures: Special Stain Group I Surgery Specimen Level IV Alcian Blue/PAS (control) HEADER OPERATION: EGD biopsy PRE-OP DIAGNOSIS: Loose stools, encounter for screening for malignant neoplasm of colon, dysphagia TISSUE SUBMITTED: A- Distal esophagus biopsy, B- Greater curvature biopsy ,C- Gastric body biopsy, D- Duodenum biopsy MICROSCOPIC DIAGNOSIS A. Distal esophagus, biopsy: Gastroesophageal junctional mucosa with mild chronic inflammation. Focal changes of reflux. No evidence of goblet cell metaplasia. See comment. B. Stomach, greater curvature, biopsy: Mild chronic gastritis. C. Gastric body, biopsy: Mild chronic inflammation. See comment. D. Duodenum, biopsy: Gastric metaplasia with associated mild chronic inflammation. Consistent with Jin's gland hyperplasia. AM/ 01/15/2024 COMMENT A. Alcian blue/PAS stain with matched control supports the above diagnosis. C. The results of immunohistochemistry for Helicobacter pylori will be reported separately ([id number]). MICROSCOPIC DESCRIPTION Slides are reviewed. GROSS DESCRIPTION A. Received in fixative is one container labeled with the patient's name and designated Distal esophagus biopsy. The specimen consists of multiple irregular fragments of light iqbal soft tissue that in aggregate measure 1.2 x 0.4 x 0.1 cm. The specimen is totally submitted in one cassette. B. Received in fixative is one container labeled with the patient's name and designated Greater curvature biopsy. The specimen consists of two irregular fragments of light iqbal soft tissue that in aggregate measure 0.6 x 0.3 x 0.1 cm. The specimen is totally submitted in one cassette. C. Received in fixative is one container labeled with the patient's name and designated Gastric body biopsy. The specimen consists of multiple irregular fragments of light iqbal soft tissue that in aggregate measure 1.0 x 0.2 x 0.1 cm. The specimen is totally submitted in one cassette. D. Received in fixative is one container labeled with the patient's name and designated Duodenum biopsy. The specimen consists of two irregular fragments of light iqbal soft tissue that in aggregate measure 0.6 x 0.4 x 0.1 cm. The specimen is totally submitted in one cassette. SJ/mr 01/14/2024 TC:3 CPT:59662q0,74355
--- NOTE | 2024-01-14 08:30 | IMM_PTH ---
PATIENT: MATT VITALE LOC: EN U#:[id number] AGE/SX: 43/F ROOM: RE01/14/[address]: Dr. Lauro Atwood DO : 1980 BED: DIS: 01/14/2024 SPEC #: [id number] RECD: 01/14/24 12:04 STATUS: TEJAS THIEN #: [id number] LILI: 01/14/24 08:[address]: Lauro Atwood DEPT: IMMUNOHISTOCHEMISTRY RECD BY: Tico Huang ENTERED: 01/14/24 12:04 SP TYPE: IMMUNO OTHR DR: Dr. Boogie Chapa DO Tissues: C - Gastric mucous membrane Procedures: H Pylori (initial) PHYSICIAN & INSTITUTION [place] [id number] SPECIMEN INFORMATION: Tissue Source: C- Gastric body biopsy Clinical Info: Loose stools, encounter for screening for malignant neoplasm of colon, dysphagia Specimen Number: [id number] CPT code: 14691 METHODOLOGY: Deparaffinized sections of prefer/formalin-fixed tissue or PAP/DQ stained slides are incubated with monoclonal/polyclonal antibodies/oligonucleotide probes. Localization is made via biotin free immunoperoxidase method. Appropriate controls are performed and reacted as expected. Results on target cell population are indicated in the following table: RESULTS: ANTIBODY / CLONE RESULT Block C H Pylori (polyclonal) negative These tests were developed and their performance characteristics determined by [facility]. They may not have been cleared or approved by the U.S. Food and Drug Administration. The FDA has determined that such clearance or approval is not necessary. The above immunohistochemical/dualISH markers are ordered and reviewed by the Pathologist. INTERPRETATION: C. Gastric body, biopsy: Negative for Helicobacter pylori organisms. ASHOK/ 01/15/2024
[2024-01-14 08:40] VITALS: BP 118/76; BP 129/90; PULSE 79; RESP 16; TEMP 36.3; O2SAT 99
--- NOTE | 2024-01-14 08:44 | PCM.POST.ANE ---
Anesthesia: Postop Eval I Current Vital Signs Temperature: 97.4 F Pulse Rate: 86 Blood Pressure: 118/76 Respiratory Rate: 16 Pulse Ox: 98 Oxygen Delivery Method: Room Air Assessment Airway patent: Yes Spontaneous unlabored respirations: Yes Mental status: Asleep nausea: No Vomiting: No Anesthesia Complication: No Fluid Hydration Crystalloid volume administer (ml): 400 Total IV fluid infused: 400 Progress Note Anesthesia document: Postop Eval 1 completed: Yes
[2024-01-14 08:45] VITALS: BP 106/74; BP 118/76; BP 129/90; PULSE 72; PULSE 86; RESP 16; TEMP 36.3; O2SAT 97; O2SAT 98
[2024-01-14 08:50] VITALS: BP 103/78; BP 129/90; PULSE 61; RESP 16; O2SAT 99
--- NOTE | 2024-01-14 08:50 | OP.EGD_ITS ---
Patient Name: Ethan Monte Procedure Date: 01/14/2024 8:19 AM Date of : 1980 Age: 43 Procedure: Upper GI endoscopy Indications: Epigastric abdominal pain, Functional Dyspepsia, Dysphagia Providers: Lauro Atwood DO Referring MD: Boogie Chapa Do Medicines: Monitored Anesthesia Care Patient Profile: This is a 43 year old female. Refer to note in patient chart for documentation of history and physical. Patient has symptoms of chronic epigastric abdominal pain, dysphagia with solids, chronic dyspepsia and chronic nausea. Complications: No immediate complications. Procedure: Pre-Anesthesia Assessment: - Prior to the procedure, a History and Physical was performed, and patient medications and allergies were reviewed. The patient is competent. The risks and benefits of the procedure and the sedation options and risks were discussed with the patient. All questions were answered and informed consent was obtained. Patient identification and proposed procedure were verified by the physician in the pre-procedure area. Mental Status Examination: alert and oriented. Airway Examination: normal oropharyngeal airway and neck mobility. Respiratory Examination: clear to auscultation. CV Examination: normal. Prophylactic Antibiotics: The patient does not require prophylactic antibiotics. Prior Anticoagulants: The patient has taken no anticoagulant or antiplatelet agents. ASA Grade Assessment: II - A patient with mild systemic disease. After reviewing the risks and benefits, the patient was deemed in satisfactory condition to undergo the procedure. The anesthesia plan was to use monitored anesthesia care (MAC). Immediately prior to administration of medications, the patient was re-assessed for adequacy to receive sedatives. The heart rate, respiratory rate, oxygen saturations, blood pressure, adequacy of pulmonary ventilation, and response to care were monitored throughout the procedure. The physical status of the patient was re-assessed after the procedure. After obtaining informed consent, the endoscope was passed under direct vision. Throughout the procedure, the patient's blood pressure, pulse, and oxygen saturations were monitored continuously. The Endoscope was introduced through the mouth, and advanced to the second part of duodenum. The upper GI endoscopy was accomplished without difficulty. The patient tolerated the procedure well. Scope In: 8:28:36 AM Scope Out: 8:36:48 AM Total Procedure Duration Time 0 hours 8 minutes 12 seconds Findings: One benign-appearing, intrinsic moderate stenosis was found in the upper third of the esophagus. This stenosis measured 6 cm (in length). The stenosis was traversed. A guidewire was placed and the scope was withdrawn. Dilation was performed with a Savary dilator with no resistance at 54 Fr. The dilation site was examined and showed moderate improvement in luminal narrowing. Estimated blood loss was minimal. The Z-line was irregular and was found 40 cm from the incisors. Biopsies were taken with a cold forceps for histology. Verification of patient identification for the specimen was done. Estimated blood loss was minimal. Bilious fluid was found in the entire examined stomach. Diffuse moderately erythematous mucosa without bleeding was found in the entire examined stomach. Biopsies were taken with a cold forceps for histology. Verification of patient identification for the specimen was done. Estimated blood loss was minimal. A deformity was found at the pylorus. Diffuse moderate inflammation characterized by congestion (edema) and erythema was found in the duodenal bulb. Biopsies were taken with a cold forceps for histology. Verification of patient identification for the specimen was done. Estimated blood loss was minimal. An acquired benign-appearing, intrinsic moderate stenosis was found in the second portion of the duodenum. Impression: - Benign-appearing esophageal stenosis. Dilated. - Z-line irregular, 40 cm from the incisors. Biopsied. - Bilious gastric fluid. - Erythematous mucosa in the stomach. Biopsied. 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 - Chronic bile duodenitis. Biopsied. - Acquired duodenal stenosis. Recommendation: - Discharge patient to home. - Resume previous diet. - Use Prilosec (omeprazole) 20 mg PO BID for 5 months. -Cholestyramine 2 to 4 g at night - Continue present medications. -CT of the abdomen pelvis with oral and IV contrast regarding narrowing at the second portion of the duodenum. Rule out superior mesenteric artery syndrome Procedure Code(s): --- Professional --- 18088, Esophagogastroduodenoscopy, flexible, transoral; with insertion of guide wire followed by passage of dilator(s) through esophagus over guide wire 47788, 59,51, Esophagogastroduodenoscopy, flexible, transoral; with biopsy, single or multiple CPT copyright 2021 [employer]. All rights reserved. The codes documented in this report are preliminary and upon social worker palliative care review may be revised to meet current compliance requirements. Lauro Atwood DO 01/14/2024 8:49:58 AM This report has been signed electronically. Number of Addenda: 0 Note Initiated On: 01/14/2024 8:19 AM
--- NOTE | 2024-01-14 08:50 | OP.CCLET_ITS ---
01/14/2024 Boogie Chapa Do Re : Upper GI endoscopy procedure for Ethan Monte Dear Sammi This procedure was performed on January. My impressions and recommendations are as follows: Impressions : - Benign-appearing esophageal stenosis. Dilated. - Z-line irregular, 40 cm from the incisors. Biopsied. - Bilious gastric fluid. - Erythematous mucosa in the stomach. Biopsied. 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 - Chronic bile duodenitis. Biopsied. - Acquired duodenal stenosis. Recommendations : - Discharge patient to home. - Resume previous diet. - Use Prilosec (omeprazole) 20 mg PO BID for 5 months. -Cholestyramine 2 to 4 g at night - Continue present medications. -CT of the abdomen pelvis with oral and IV contrast regarding narrowing at the second portion of the duodenum. Rule out superior mesenteric artery syndrome My findings are described in the full procedure note, which is enclosed. If I can be of further assistance, please feel free to contact me at . Sincerely, Lauro Atwood DO 01/14/2024 8:49:58 AM This report has been signed electronically.
[2024-01-14 08:55] VITALS: BP 119/88; BP 129/90; PULSE 62; RESP 16; TEMP 36.1; O2SAT 100
--- NOTE | 2024-01-14 09:09 | PCM.POSTANE2 ---
Anesthesia Postop Eval I Sum Postop Eval Completion status Anesthesia document: Postop Eval 1 completed: Yes Anesthesia Postop Eval I Summary Anesthesia Postop Eval I Summary: Anesthesia Postop Eval I: Assessment Summary Airway patent Yes 01/14/24 08:45 [email or web address] Spontaneous unlabored Yes 01/14/24 08:45 [email or web address] respirations Mental status Asleep 01/14/24 08:45 [email or web address] nausea No 01/14/24 08:45 [email or web address] Vomiting No 01/14/24 08:45 [email or web address] Anesthesia Postop Eval I: Fluid Summary Crystalloid volume administer 400 01/14/24 08:45 [email or web address] (ml) Colloids volume administered ( ml) Blood Product volume administered (ml) Total IV fluid infused 400 01/14/24 08:45 [email or web address] Anesthesia Postop Eval I: Summary Notes Anesthesia Complication No 01/14/24 08:45 [email or web address] Anesthesia Complication Comment: Post-operative progress note Anesthesia: Postop Eval II Evaluation Mental status: Awake Pain Level: 0 nausea: No Vomiting: No Complications Anesthesia Complication: No
[2024-01-14 09:31] VITALS: BP 129/90
== END 2024-01-14 09:44 | disposition home or self-care (01) ==
LOC: EN 07:53 → AC 07:54
PROVIDERS: PCP Student in an Organized Health Care Education/Training Program; Referring Provider Student in an Organized Health Care Education/Training Program; Visit Provider Internal Medicine Gastroenterology
PROC: 0DJ08ZZ Inspection of Upper Intestinal Tract, Via Natural or Artificial Opening Endoscopic (ICD-10-PCS; CPT 43235; principal; 2024-01-14 08:25)
DX: K29.50 Unspecified chronic gastritis without bleeding (principal); K22.2 Esophageal obstruction; K29.80 Duodenitis without bleeding; K31.5 Obstruction of duodenum; F17.200 Nicotine dependence, unspecified, uncomplicated; K31.89 Other diseases of stomach and duodenum; K20.90 Esophagitis, unspecified without bleeding
CPT/HCPCS: 43248; 43239; 88305; 88312; 88342; J7120; C1769; J2405

== ENCOUNTER → 2024-02-03 | Outpatient (CLI) | payer OTHER, SELFPAY ==
--- NOTE | 2024-02-03 18:47 | CT_ITS ---
STUDY: CT ABDOMEN AND PELVIS WITH CONTRAST REASON FOR EXAM: Female, 43 years old. One year history of epigastric pain. Prior duodenal stenosis surgery. RADIATION DOSAGE (If Supplied By Facility): CTDIvol = ( 17.58 ) mGy, DLP = ( 958.08 ) mGycm TECHNIQUE: Transaxial images were obtained from the dome of the diaphragm to the symphysis pubis without oral contrast. Oral and amp; IV Readi-CAT and amp; 100mL Isovue-370 was administered. Sagittal and coronal images were reconstructed. Individualized dose optimization techniques were used for this CT. COMPARISON: None. FINDINGS: The visualized lung bases are unremarkable. The visualized portions of the heart are within normal limits. Mild hepatomegaly. There is a 7.6 mm cyst in the left lobe of the liver. Normal gallbladder and extrahepatic biliary system. Normal spleen. Normal pancreas. Normal bilateral adrenal glands. Normal right kidney. Normal left kidney. Normal visualized stomach. Normal small intestine. Normal colon. The patient is status post appendectomy. There is scattered atherosclerotic calcification of the abdominal aorta, without a demonstrated aneurysm. Normal inferior vena cava. Normal retroperitoneum. Normal urinary bladder. There is absence of the uterus consistent with a prior hysterectomy. Normal abdominal wall. Normal osseous structures. CT/Abdomen/Pelvis WITH Contrast IMPRESSION: Mild hepatomegaly. Small cyst in the left lobe of the liver. Electronically Signed: Heath Kasper MD at 8:14 EDT ,
== END | disposition home or self-care (01) ==
PROVIDERS: PCP Student in an Organized Health Care Education/Training Program; Referring Provider Internal Medicine Gastroenterology; Visit Provider Internal Medicine Gastroenterology
DX: K31.5 Obstruction of duodenum (principal)
CPT/HCPCS: 74177; Q9967

== ENCOUNTER → 2024-03-04 | Outpatient (CLI) | payer OTHER, SELFPAY ==
--- NOTE | 2024-03-04 08:22 | US_ITS ---
STUDY: ABDOMINAL ULTRASOUND - RIGHT UPPER QUADRANT; ELASTOGRAPHY REASON FOR VISIT: Female, 43 years old. Fatty infiltration of the liver. TECHNIQUE: Ultrasound evaluation of the right upper quadrant was performed with real-time and static yanez-scale imaging. Point quantification shear wave elastography was performed ([employer]). TECHNICAL QUALITY: Adequate. COMPARISON: Comparison is made with prior CT scan of the abdomen and pelvis dated February 03, 2024. FINDINGS: Liver: The liver measures 16.4 cm. There is increased echogenicity consistent with fatty infiltration. The bile ducts are within normal limits. There is hepatic color flow. The direction of portal flow is hepatopetal. There is no demonstrated mass lesion. Median liver stiffness measured 7.1 kPa. Gallbladder: Normal distended gallbladder. The gallbladder wall measures 2.2 mm. There is a negative sonographic Frazier''s sign. There is no pericholecystic fluid. There are no gallstones. Common Bile Duct (C.B.D.): The common bile duct measures 5.8 mm. Pancreas: There is normal echogenicity of the visualized pancreas. There is no demonstrated pancreatic mass or cyst. Right Kidney: Normal size of the right kidney. The right kidney measures 10.1 cm x 5.5 cm x 4.5 cm. Normal renal cortex. The right cortex measures 1.4 cm. There is no demonstrated renal mass or cyst. There is no right hydronephrosis. US/ABD Limited w/ Elastography IMPRESSION: 1. Liver stiffness measures 7.1 kPa compatible with F2-F3 (Mild to moderate liver fibrosis) Metavir score. Electronically Signed: Heath Kasper MD at 11:04 EDT ,
== END | disposition home or self-care (01) ==
PROVIDERS: PCP Student in an Organized Health Care Education/Training Program; Referring Provider Internal Medicine Gastroenterology; Visit Provider Internal Medicine Gastroenterology
DX: K76.0 Fatty (change of) liver, not elsewhere classified (principal)
CPT/HCPCS: 76705; 76981